=== PATIENT | male | born 1940 | race American Indian/Alaskan Native ===

== ENCOUNTER 2021-11-10 18:24 | Inpatient (IN) | payer MEDICARE ==
--- NOTE | 2021-11-10 19:50 | XRay Report ---
CHEST 1 VIEW INDICATION: weakness. COMPARISON: None. FINDINGS: Support devices: None. Heart: Normal. Lungs/Pleura: There are patchy airspace opacities in the lower lungs bilaterally. Upper lungs are linda ar. No pleural abnormality. IMPRESSION: 1. Patchy bibasilar airspace opacities are concerning for pneumonia. Signer Name: Onel Vital MD Signed: 11/10/2021 7:46 PM Workstation Name: [id number]
--- NOTE | 2021-11-10 20:22 | Emergency Department Report ---
HPI - General Chief Complaint: Medical Clearance Time Seen by Provider: 11/10/21 18:57 - HPI HPI: 81-year-old male presents to the emergency department via EMS from home with complaint of failure to thrive. Over the past 4 to 5 days he has not been eatin g or drinking and has had some unintended weight loss. The patient has a history of CVA x2 with the most recent stroke occurring about 2 weeks ago, on 25 October, while at [place]. This left him with weakness, instability, and appears to be some level of vascular dementia as he now has confusion. He was discharged home on the and has a home health care nurse for a few hours a day, and at home PT/OT. However, despite this home health care and assistance he has mostly remained in bed to the point where he is developing some ulcerations. His "housekeeping director" says that he has been having some dark urine and there is concerned that he is dehydrated. Patient is currently confused, AAO x1, and therefore information has been obtained by his son Carlos and the housekeeping director. ED Past Medical Hx - Past Medical History Previous Medical History?: Yes Hx Dementia: Yes - Social History Smoking Status: Unknown if ever smoked ED Review of Systems ROS: Stated complaint: FAILURE TO THRIVE Other details as noted in HPI Comment: Unobtainable due to pts medical conditions Physical Exam - Physical Exam Vital Signs: Vital Signs 11/10/21 11/10/21 18:57 19:06 Pulse Rate 60 Respiratory 18 Rate Blood Pressure 150/60 [Right] O2 Sat by Pulse 97 97 Oximetry Physical Exam: GENERAL: The patient is well-developed well-nourished. HENT: Normocephalic. Atraumatic. Patient has moist mucous membranes. EYES: Extraocular motions are intact. NECK: Supple. Trachea is midline. CHEST/LUNGS: Bilateral rhonchi heard. No tachypnea or accessory muscle use. HEART/CARDIOVASCULAR: Regular. There is no tachycardia. There is no murmur. ABDOMEN: Abdomen is soft, nontender. Patient has normal bowel sounds. There is no abdominal distention. SKIN: Skin is warm and dry. NEURO: The patient is awake but confused. AAO x1 to person, but not place or time. He is cooperative. Withdraws to painful stimuli. MUSCULOSKELETAL: There is no tenderness or deformity. ED Course Vital Signs 11/10/21 11/10/21 18:57 19:06 Pulse Rate 60 Respiratory 18 Rate Blood Pressure 150/60 [Right] O2 Sat by Pulse 97 97 Oximetry ED Medical Decision Making - Lab Data Result diagrams: 11/10/21 20:02 11/10/21 20:02 Lab Results 11/10/21 11/10/21 11/10/21 Range/Units 20:02 20:02 20:02 WBC 8.4 (4.5-11.0) K/mm3 RBC 4.00 (3.65-5.03) M/mm3 Hgb 11.4 L (11.8-15.2) gm/dl Hct 36.3 (35.5-45.6) % MCV 91 (84-94) fl MCH 29 (28-32) pg MCHC 32 (32-34) % RDW 15.3 H (13.2-15.2) % Plt Count 266 (140-440) K/mm3 Lymph % (Auto) 34.0 (13.4-35.0) % Hood % (Auto) 9.1 H (0.0-7.3) % Eos % (Auto) 0.7 (0.0-4.3) % Baso % (Auto) 0.9 (0.0-1.8) % Lymph # (Auto) 2.9 (1.2-5.4) K/mm3 Hood # (Auto) 0.8 (0.0-0.8) K/mm3 Eos # (Auto) 0.1 (0.0-0.4) K/mm3 Baso # (Auto) 0.1 (0.0-0.1) K/mm3 Seg Neutrophils % 55.3 (40.0-70.0) % Seg Neutrophils # 4.7 (1.8-7.7) K/mm3 D-Dimer (0-234) ng/mlDDU Sodium 144 (137-145) mmol/L Potassium 3.8 (3.6-5.0) mmol/L Chloride 108.3 H (98-107) mmol/L Carbon Dioxide 25 (22-30) mmol/L Anion Gap 15 mmol/L BUN 18 (9-20) mg/dL Creatinine 1.3 (0.8-1.3) mg/dL Estimated GFR 53 ml/min BUN/Creatinine Ratio 14 % Glucose 85 (75-100) mg/dL Lactic Acid 1.20 (0.7-2.0) mmol/L Calcium 8.9 (8.4-10.2) mg/dL Magnesium (1.7-2.3) mg/dL Total Bilirubin 0.70 (0.1-1.2) mg/dL AST 41 H (5-40) units/L ALT 37 (7-56) units/L Alkaline Phosphatase 87 (35-129) units/L Ammonia (25-60) umol/L Total Creatine Kinase (55-170) units/L Troponin T (0.00-0.029) ng/mL Total Protein 6.9 (6.3-8.2) g/dL Albumin 3.3 L (3.9-5) g/dL Albumin/Globulin Ratio 0.9 % TSH (0.270-4.200) mlU/mL 11/10/21 11/10/21 11/10/21 Range/Units 20:02 20:02 20:02 WBC (4.5-11.0) K/mm3 RBC (3.65-5.03) M/mm3 Hgb (11.8-15.2) gm/dl Hct (35.5-45.6) % MCV (84-94) fl MCH (28-32) pg MCHC (32-34) % RDW (13.2-15.2) % Plt Count (140-440) K/mm3 Lymph % (Auto) (13.4-35.0) % Hood % (Auto) (0.0-7.3) % Eos % (Auto) (0.0-4.3) % Baso % (Auto) (0.0-1.8) % Lymph # (Auto) (1.2-5.4) K/mm3 Hood # (Auto) (0.0-0.8) K/mm3 Eos # (Auto) (0.0-0.4) K/mm3 Baso # (Auto) (0.0-0.1) K/mm3 Seg Neutrophils % (40.0-70.0) % Seg Neutrophils # (1.8-7.7) K/mm3 D-Dimer (0-234) ng/mlDDU Sodium (137-145) mmol/L Potassium (3.6-5.0) mmol/L Chloride (98-107) mmol/L Carbon Dioxide (22-30) mmol/L Anion Gap mmol/L BUN (9-20) mg/dL Creatinine (0.8-1.3) mg/dL Estimated GFR ml/min BUN/Creatinine Ratio % Glucose (75-100) mg/dL Lactic Acid (0.7-2.0) mmol/L Calcium (8.4-10.2) mg/dL Magnesium 2.10 (1.7-2.3) mg/dL Total Bilirubin (0.1-1.2) mg/dL AST (5-40) units/L ALT (7-56) units/L Alkaline Phosphatase (35-129) units/L Ammonia 13.0 L (25-60) umol/L Total Creatine Kinase 64 (55-170) units/L Troponin T 0.016 (0.00-0.029) ng/mL Total Protein (6.3-8.2) g/dL Albumin (3.9-5) g/dL Albumin/Globulin Ratio % TSH 1.930 (0.270-4.200) mlU/mL 11/11/21 Range/Units 00:38 WBC (4.5-11.0) K/mm3 RBC (3.65-5.03) M/mm3 Hgb (11.8-15.2) gm/dl Hct (35.5-45.6) % MCV (84-94) fl MCH (28-32) pg MCHC (32-34) % RDW (13.2-15.2) % Plt Count (140-440) K/mm3 Lymph % (Auto) (13.4-35.0) % Hood % (Auto) (0.0-7.3) % Eos % (Auto) (0.0-4.3) % Baso % (Auto) (0.0-1.8) % Lymph # (Auto) (1.2-5.4) K/mm3 Hood # (Auto) (0.0-0.8) K/mm3 Eos # (Auto) (0.0-0.4) K/mm3 Baso # (Auto) (0.0-0.1) K/mm3 Seg Neutrophils % (40.0-70.0) % Seg Neutrophils # (1.8-7.7) K/mm3 D-Dimer 1015.87 H (0-234) ng/mlDDU Sodium (137-145) mmol/L Potassium (3.6-5.0) mmol/L Chloride (98-107) mmol/L Carbon Dioxide (22-30) mmol/L Anion Gap mmol/L BUN (9-20) mg/dL Creatinine (0.8-1.3) mg/dL Estimated GFR ml/min BUN/Creatinine Ratio % Glucose (75-100) mg/dL Lactic Acid (0.7-2.0) mmol/L Calcium (8.4-10.2) mg/dL Magnesium (1.7-2.3) mg/dL Total Bilirubin (0.1-1.2) mg/dL AST (5-40) units/L ALT (7-56) units/L Alkaline Phosphatase (35-129) units/L Ammonia (25-60) umol/L Total Creatine Kinase (55-170) units/L Troponin T (0.00-0.029) ng/mL Total Protein (6.3-8.2) g/dL Albumin (3.9-5) g/dL Albumin/Globulin Ratio % TSH (0.270-4.200) mlU/mL - Radiology Data Radiology results: report reviewed CHEST 1 VIEW INDICATION: weakness. COMPARISON: None. FINDINGS: Support devices: None. Heart: Normal. Lungs/Pleura: There are patchy airspace opacities in the lower lungs bilaterally. Upper lungs are clear. No pleural abnormality. IMPRESSION: 1. Patchy bibasilar airspace opacities are concerning for pneumonia. - Medical Decision Making This patient presents to the emergency department with concern for failure to thrive as he has not been eating or drinking, has decreased medication, and essentially has been laying in bed staring off for the past few days. It sounds like this initially started upon discharge from [place] after his most recent CVA, but has worsened over the past few days despite some home PT/OT and an occasional visit from home health care. On examination the patient is awake but confused, AAO x1. Chest x-ray shows bibasilar infiltrates concerning for pneumonia. Labs have thus far been mostly unremarkable except for some mild decrease in his albumin and slight elevation in his AST level. With the bibasilar pneumonia the patient will be treated with IV antibiotics but there is also concern for possible Covid. Covid labs have been sent and thus far the D-dimer level has come back elevated. Still waiting for the ferritin, CRP and LDH. We also still waiting for a urine sample. Patient will be admitted to the hospital for further evaluation and treatment and was accepted for admission by the hospitalist, Dr. Figueroa. Critical care attestation.: If time is entered above; I have spent that time in minutes in the direct care of this critically ill patient, excluding procedure time. ED Disposition Clinical Impression: Bilateral pneumonia, Suspected 2019 novel coronavirus infection, Mild renal insufficiency Disposition: ADMITTED INPATIENT Is pt being admited?: Yes Condition: Fair Time of Disposition: 01:35
[2021-11-10 20:37] LABS: Basophils # (Auto) 0.1 K/mm3 (0.0-0.1); Basophils % (Auto) 0.9 % (0.0-1.8); Eosinophils # (Auto) 0.1 K/mm3 (0.0-0.4); Eosinophils % (Auto) 0.7 % (0.0-4.3); Hematocrit 36.3 % (35.5-45.6); Hemoglobin 11.4 gm/dl (11.8-15.2); Lymphocytes # (Auto) 2.9 K/mm3 (1.2-5.4); Mean Corpuscular HGB Conc 32 % (32-34); Mean Corpuscular Volume 91 fl (84-94); Monocytes # (Auto) 0.8 K/mm3 (0.0-0.8); Monocytes % (Auto) 9.1 % (0.0-7.3); Platelet Count 266 K/mm3 (140-440); Red Cell Distribution Width 15.3 % (13.2-15.2)
[2021-11-10 20:49] LABS: Albumin 3.3 g/dL (3.9-5); Calcium 8.9 mg/dL (8.4-10.2)
[2021-11-11] MEDS ORDERED: AZITHROMYCIN/NS 500 MG/250 ML 500 MG/250 ML BAG IV ONE (00:32)
[2021-11-11] MEDS ORDERED: cefTRIAXone/NS 1 GM/50 ML 1 GM/50 ML BAG IV ONE (00:32)
[2021-11-11] MEDS ORDERED: SODIUM CHLORIDE 0.9% 1000 ML 1,000 ML IV ONE (00:33)
[2021-11-11 01:34] LABS: C-Reactive Protein 0.4 mg/dL (0.00-1.30)
[2021-11-11] MEDS ORDERED: ALBUTEROL 2.5 MG/3 ML NEBU IH PRN (02:33)
[2021-11-11] MEDS ORDERED: HYDROmorphone 1 MG/1 ML INJ IV PRN (02:33)
[2021-11-11] MEDS ORDERED: ACETAMINOPHEN 325 MG TAB PO PRN (02:33)
[2021-11-11] MEDS ORDERED: MORPHINE 2 MG/1 ML INJ IV PRN (02:33)
[2021-11-11] MEDS ORDERED: ONDANSETRON 4 MG/2 ML INJ IV PRN (02:33)
--- NOTE | 2021-11-11 02:40 | History and Physical Report ---
History of Present Illness Date of examination: 11/11/21 Date of admission: 11/11/21 Chief complaint: Failure to thrive History of present illness: 81-year-old male with history of dementia and stroke with left-sided weakness was brought to the emergency room because of failure to thrive. Over the past 4 to 5 days he has not been eating or drinking and has had some unintended weight loss. The patient has a history of CVA x2 with the most recent stroke occurring about 2 weeks ago, on 25 October, while at [place]. This left him with weakness, instability, and appears to be some level of vascular dementia as he now has confusion. He was discharged home on the and has a home health care nurse for a few hours a day, and at home PT/OT. However, despite this home health care and assistance he has mostly remained in bed to the point where he is developing some ulcerations. His "small animal caretaker" says that he has been having some dark urine and there is concerned that he is dehydrated. Patient is currently confused, AAO x1, and therefore information has been obtained by his son Carlos and the small animal caretaker. Chest x-ray shows bibasilar infiltrates concerning for pneumonia. Labs have thus far been mostly unremarkable except for some mild decrease in his albumin and slight elevation in his AST level. D-dimer is 1015.87, ferritin 1460.0. LDH 270 With the bibasilar pneumonia the patient will be treated with IV antibiotics but there is also concern for possible Covid. Covid labs have been sent and thus far the D-dimer level has come back elevated. Infectious disease consulted Past History Past Medical History: stroke, other (Dementia. Failure to thrive) Medications and Allergies Allergies Allergy/AdvReac Type Severity Reaction Status Date / Time No Known Allergies Allergy Verified 11/10/21 18:57 Active Meds: Active Medications Sodium Chloride (Nacl 0.9% 1000 Ml) 1,000 mls @ 125 mls/hr IV ONCE ONE Stop: 11/11/21 08:32 Review of Systems All systems: negative Constitutional: weakness, malaise, lethargy, other Neurological: change in mentation Exam - Constitutional Vitals: Temp Pulse Resp BP Pulse Ox 60 18 150/60 97 11/10/21 18:57 11/10/21 18:57 11/10/21 18:57 11/10/21 19:06 General appearance: Present: no acute distress, well-nourished - EENT Eyes: Present: PERRL ENT: hearing intact, clear oral mucosa - Neck Neck: Present: supple, normal ROM - Respiratory Respiratory effort: normal Respiratory: bilateral: diminished - Cardiovascular Heart Sounds: Present: S1 & S2. Absent: rub, click - Extremities Extremities: pulses symmetrical, No edema Peripheral Pulses: within normal limits - Abdominal General gastrointestinal: Present: soft, non-tender, non-distended, normal bowel sounds Male genitourinary: Present: normal - Integumentary Integumentary: Present: clear, warm, dry - Musculoskeletal Musculoskeletal: gait normal, strength equal bilaterally - Psychiatric Psychiatric: appropriate mood/affect, intact judgment & insight - Neurologic Neurologic: CNII-XII intact, moves all extremities HEART Score - HEART Score Troponin: Troponin T 0.016 ng/mL (0.00-0.029) 11/10/21 20:02 Results - Labs CBC & Chem 7: 11/10/21 20:02 11/10/21 20:02 Labs: Laboratory Last Values WBC 8.4 K/mm3 (4.5-11.0) 11/10/21 20:02 RBC 4.00 M/mm3 (3.65-5.03) 11/10/21 20:02 Hgb 11.4 gm/dl (11.8-15.2) L 11/10/21 20:02 Hct 36.3 % (35.5-45.6) 11/10/21 20:02 MCV 91 fl (84-94) 11/10/21 20:02 MCH 29 pg (28-32) 11/10/21 20:02 MCHC 32 % (32-34) 11/10/21 20:02 RDW 15.3 % (13.2-15.2) H 11/10/21 20:02 Plt Count 266 K/mm3 (140-440) 11/10/21 20:02 Lymph % (Auto) 34.0 % (13.4-35.0) 11/10/21 20:02 Major % (Auto) 9.1 % (0.0-7.3) H 11/10/21 20:02 Eos % (Auto) 0.7 % (0.0-4.3) 11/10/21 20:02 Baso % (Auto) 0.9 % (0.0-1.8) 11/10/21 20:02 Lymph # (Auto) 2.9 K/mm3 (1.2-5.4) 11/10/21 20:02 Major # (Auto) 0.8 K/mm3 (0.0-0.8) 11/10/21 20:02 Eos # (Auto) 0.1 K/mm3 (0.0-0.4) 11/10/21 20:02 Baso # (Auto) 0.1 K/mm3 (0.0-0.1) 11/10/21 20:02 Seg Neutrophils % 55.3 % (40.0-70.0) 11/10/21 20:02 Seg Neutrophils # 4.7 K/mm3 (1.8-7.7) 11/10/21 20:02 D-Dimer 1015.87 ng/mlDDU (0-234) H 11/11/21 00:38 Sodium 144 mmol/L (137-145) 11/10/21 20:02 Potassium 3.8 mmol/L (3.6-5.0) 11/10/21 20:02 Chloride 108.3 mmol/L (98-107) H 11/10/21 20:02 Carbon Dioxide 25 mmol/L (22-30) 11/10/21 20:02 Anion Gap 15 mmol/L 11/10/21 20:02 BUN 18 mg/dL (9-20) 11/10/21 20:02 Creatinine 1.3 mg/dL (0.8-1.3) 11/10/21 20:02 Estimated GFR 53 ml/min 11/10/21 20:02 BUN/Creatinine Ratio 14 % 11/10/21 20:02 Glucose 85 mg/dL (75-100) 11/10/21 20:02 Lactic Acid 1.20 mmol/L (0.7-2.0) 11/10/21 20:02 Calcium 8.9 mg/dL (8.4-10.2) 11/10/21 20:02 Magnesium 2.10 mg/dL (1.7-2.3) 11/10/21 20:02 Ferritin 1460.0 ng/mL (30.0-300.0) H 11/11/21 00:38 Total Bilirubin 0.70 mg/dL (0.1-1.2) 11/10/21 20:02 AST 41 units/L (5-40) H 11/10/21 20:02 ALT 37 units/L (7-56) 11/10/21 20:02 Alkaline Phosphatase 87 units/L (35-129) 11/10/21 20:02 Ammonia 13.0 umol/L (25-60) L 11/10/21 20:02 Lactate Dehydrogenase 275 units/L (91-180) H 11/11/21 00:38 Total Creatine Kinase 64 units/L (55-170) 11/10/21 20:02 Troponin T 0.016 ng/mL (0.00-0.029) 11/10/21 20:02 C-Reactive Protein 0.40 mg/dL (0.00-1.30) 11/11/21 00:38 Total Protein 6.9 g/dL (6.3-8.2) 11/10/21 20:02 Albumin 3.3 g/dL (3.9-5) L 11/10/21 20:02 Albumin/Globulin Ratio 0.9 % 11/10/21 20:02 TSH 1.930 mlU/mL (0.270-4.200) 11/10/21 20:02 - Imaging and Cardiology Chest x-ray: report reviewed Assessment and Plan VTE prophylaxis?: Chemical Plan of care discussed with patient/family: Yes - Patient Problems (1) Bilateral pneumonia Current Visit: Yes Status: Acute Plan to address problem: Admit the patient to the medical telemetry. Oxygen via nasal penetrator per minute DuoNeb by nebulizer every 4 hours. Rocephin 2 g IV daily. Dexamethasone 6 mg IV daily. Zithromax 500 mg IV daily. We do the blood culture sputum culture follow Covid inflammatory marker. Consult infectious disease for evaluation (2) Failure to thrive Current Visit: Yes Status: Acute Plan to address problem: D5 half-normal saline at the rate of 100 cc/h. Will consult nutrition evaluation for malnutrition and dietary recommendation (3) CVA (cerebral vascular accident) Current Visit: Yes Status: Acute Plan to address problem: Stable. We will continue the home medication (4) Dementia Current Visit: Yes Status: Acute Plan to address problem: Stable. We will monitor the patient closely. We continue the home medication (5) Mild renal insufficiency Current Visit: Yes Status: Acute Plan to address problem: D5 half-normal saline at the rate of 100 cc/h. Avoid nephrotoxic drug. Renally dose medication. Recheck BMP in the morning (6) Suspected 2019 novel coronavirus infection Current Visit: Yes Status: Acute Plan to address problem: Oxygen via nasal penetrator per minute DuoNeb by nebulizer every 4 hours. Rocephin 2 g IV daily. Dexamethasone 6 mg IV daily. Zithromax 500 mg IV daily. We do the blood culture sputum culture follow Covid inflammatory marker. Consult infectious disease for evaluation (7) DVT (deep venous thrombosis) Current Visit: Yes Status: Acute Plan to address problem: Heparin 5000 units subcu every 8 hours for DVT prophylaxis. Pepcid 20 mg p.o. twice daily for GI prophylaxis. Patient is a full code
[2021-11-11] MEDS: HEPARIN 5,000 UNIT/1 ML VIAL SUB-Q SCH ×2 (06:30→17:47)
[2021-11-11] MEDS: D5W/0.45% NACL 1,000 ML IV SCH (10:00)
[2021-11-11] MEDS ORDERED: FAMOTIDINE 20 MG/2 ML INJ IV SCH ×2 (10:00)
[2021-11-11] MEDS: FAMOTIDINE 10 MG TAB PO SCH (10:08)
[2021-11-11] MEDS: dexAMETHasone 4 MG/ML VIAL IV SCH (10:08)
--- NOTE | 2021-11-11 13:49 | Consultation ---
History of Present Illness - Reason for Consult Consult date: 11/11/21 - History of Present Illness 81-year-old male past medical history dementia, stroke presented to hospital with decreased p.o. intake and weight loss. His most recent CVA was 2 weeks previous. He has residual weakness and has new onset altered mental status. He now has some ulcerations due to being mostly bedbound. Afebrile since admission with a white count 8.4. Covid PCR pending. Blood cultures no growth so far. Currently on ceftriaxone, azithromycin, dexamethasone. Imaging personally reviewed: Chest x-ray: Patchy bibasilar airspace opacities Review of systems: Deferred to reduce to the risk of transmission of COVID-19 Past History Past Medical History: stroke, other (Dementia. Failure to thrive) Past Surgical History: No surgical history Social history: no significant social history Family history: hypertension Medications and Allergies Allergies Allergy/AdvReac Type Severity Reaction Status Date / Time No Known Allergies Allergy Verified 11/10/21 18:57 Active Meds: Active Medications Acetaminophen (Acetaminophen 325 Mg Tab) 650 mg PO Q4H PRN PRN Reason: Pain MILD(1-3)/Fever >100.5/DUNNE Albuterol (Albuterol 2.5 Mg/3 Ml Nebu) 2.5 mg IH Q3HRT PRN PRN Reason: Shortness Of Breath Albuterol/Ipratropium (Ipratropium/Albuterol Sulfate 3 Ml Ampul.Neb) 1 ampul IH Q6HRT [facility] Azithromycin (Azithromycin 250 Mg Tab) 500 mg PO QHS [facility] Stop: 11/14/21 22:01 Dexamethasone (Dexamethasone 4 Mg/Ml Vial) 6 mg IV DAILY [facility] Stop: 11/20/21 10:01 Last Admin: 11/11/21 10:08 Dose: 6 mg Famotidine (Famotidine 10 Mg Tab) 10 mg PO BID [facility] Last Admin: 11/11/21 10:08 Dose: Not Given Heparin Sodium (Porcine) (Heparin 5,000 Unit/1 Ml Vial) 5,000 unit SUB-Q Q8HR [facility] Last Admin: 11/11/21 06:30 Dose: 5,000 unit Hydromorphone HCl (Hydromorphone 1 Mg/1 Ml Inj) 0.5 mg IV Q3H PRN PRN Reason: Pain , Severe (7-10) Dextrose/Sodium Chloride (D5/0.45ns) 1,000 mls @ 100 mls/hr IV DIRECT [facility] Last Admin: 11/11/21 10:00 Dose: 100 mls/hr Ceftriaxone Sodium (Rocephin/Ns 2 Gm/100 Ml) 2 gm in 100 mls @ 200 mls/hr IV Q24H [facility]; Protocol Stop: 11/15/21 00:29 Morphine Sulfate (Morphine 2 Mg/1 Ml Inj) 2 mg IV Q4H PRN PRN Reason: Pain, Moderate (4-6) Ondansetron HCl (Ondansetron 4 Mg/2 Ml Inj) 4 mg IV Q8H PRN PRN Reason: Nausea And Vomiting Sodium Chloride (Sodium Chloride 0.9% 10 Ml Flush Syringe) 10 ml IV BID [facility] Last Admin: 11/11/21 10:04 Dose: 10 ml Sodium Chloride (Sodium Chloride 0.9% 10 Ml Flush Syringe) 10 ml IV PRN PRN PRN Reason: LINE FLUSH Physical Examination - Physical Exam Narrative exam: Physical exam deferred to reduce risk of transmission of COVID-19. Please refer to primary team's note. - Constitutional Vitals: Vital Signs Temp Pulse Resp BP Pulse Ox 98.9 F 53 L 16 121/76 100 11/10/21 21:06 11/11/21 08:06 11/11/21 08:06 11/11/21 08:06 11/11/21 08:06 Temperature -Last 24 Hours Temperature 98.9 F Results - Labs CBC & Chem 7: 11/10/21 20:02 11/10/21 20:02 Labs: Abnormal lab results 11/10/21 11/10/21 11/10/21 Range/Units 20:02 20:02 20:02 Hgb 11.4 L (11.8-15.2) gm/dl RDW 15.3 H (13.2-15.2) % [place] % (Auto) 9.1 H (0.0-7.3) % D-Dimer (0-234) ng/mlDDU Chloride 108.3 H (98-107) mmol/L Ferritin (30.0-300.0) ng/mL AST 41 H (5-40) units/L Ammonia 13.0 L (25-60) umol/L Lactate Dehydrogenase (91-180) units/L Albumin 3.3 L (3.9-5) g/dL 11/11/21 11/11/21 11/11/21 Range/Units 00:38 00:38 00:38 Hgb (11.8-15.2) gm/dl RDW (13.2-15.2) % [place] % (Auto) (0.0-7.3) % D-Dimer 1015.87 H (0-234) ng/mlDDU Chloride (98-107) mmol/L Ferritin 1460.0 H (30.0-300.0) ng/mL AST (5-40) units/L Ammonia (25-60) umol/L Lactate Dehydrogenase 275 H (91-180) units/L Albumin (3.9-5) g/dL Assessment and Plan Cultures: Blood culture no growth so far COVID PCR pending A/P: 81-year-old male past medical history dementia, stroke now with: #COVID PUI: pending PCR. CXR with bibasilar infiltrates. On room air. #Pressure wounds: offloading and wound care. 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 Recs: -Continue empiric antibiotics for now pending procalcitonin. If no procalcitonin result then complete 5 days -Continue empiric dexamethasone for now -Follow up COVID PCR -Offloading and wound care for pressure wounds. Thank you for the consult, we will continue to follow. MD Jod[facility] ([facility]) O: [phone] F: [phone]
[2021-11-11] MEDS ORDERED: AZITHROMYCIN 250 MG TAB PO SCH (22:00)
[2021-11-12] MEDS ORDERED: cefTRIAXone/NS 2 GM/100 ML 2 GM/100 ML BAG IV SCH
[2021-11-12] MEDS ORDERED: AZITHROMYCIN/NS 500 MG/250 ML 500 MG/250 ML BAG IV SCH (01:00)
[2021-11-12] MEDS: HEPARIN 5,000 UNIT/1 ML VIAL SUB-Q SCH ×4 (01:16→21:33)
[2021-11-12] MEDS: IPRATROPIUM/ALBUTEROL SULFATE 3 ML AMPUL.NEB IH SCH ×4 (03:05→07:13)
[2021-11-12] MEDS: FAMOTIDINE 10 MG TAB PO SCH ×3 (03:07→21:33)
[2021-11-12 06:25] LABS: Basophils % (Auto) 0.3 % (0.0-1.8); Hematocrit 34.1 % (35.5-45.6); Hemoglobin 10.9 gm/dl (11.8-15.2); Lymphocytes # (Auto) 2.2 K/mm3 (1.2-5.4); Lymphocytes % (Auto) 17.2 % (13.4-35.0); Mean Corpuscular HGB Conc 32 % (32-34); Mean Corpuscular Volume 89 fl (84-94); Monocytes # (Auto) 0.8 K/mm3 (0.0-0.8); Monocytes % (Auto) 6.2 % (0.0-7.3); Platelet Count 245 K/mm3 (140-440); Red Blood Count 3.81 M/mm3 (3.65-5.03); Red Cell Distribution Width 14.8 % (13.2-15.2)
[2021-11-12 06:38] LABS: BUN/Creatinine Ratio 15; Blood Urea Nitrogen 16 mg/dL (9-20); Hemolysis Index 9
[2021-11-12] MEDS: dexAMETHasone 4 MG/ML VIAL IV SCH (09:00)
--- NOTE | 2021-11-12 10:39 | Progress Note ---
Assessment and Plan Cultures: Blood culture no growth so far COVID PCR positive A/P: 81-year-old male past medical history dementia, stroke now with: #COVID pneumonia: CXR with bibasilar infiltrates. On room air. #Pressure wounds: offloading and wound care. 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 Recs: -Stopped empiric antibiotics given normal procalcitonin -Continue empiric dexamethasone for now -Offloading and wound care for pressure wounds. Thank you for the consult, we will continue to follow. Bishop Vargas MD [facility] ([facility]) O: [phone] F: [phone] Subjective Date of service: 11/12/21 Interval history: Afebrile, white count slightly increased today. Objective - Exam Narrative Exam: Physical exam deferred to reduce risk of transmission of COVID-19. Please refer to primary team's note. - Constitutional Vitals: Vital Signs Temp Pulse Resp BP Pulse Ox 98.1 F 60 14 137/80 96 11/12/21 01:35 11/12/21 01:35 11/12/21 01:35 11/12/21 02:00 11/12/21 07:28 Temperature -Last 24 Hours Temperature 98.1 F - Labs CBC & Chem 7: 11/12/21 05:44 11/12/21 05:44 Labs: Abnormal lab results 11/11/21 11/12/21 11/12/21 Range/Units 09:00 05:44 05:44 WBC 12.5 H (4.5-11.0) K/mm3 Hgb 10.9 L (11.8-15.2) gm/dl Hct 34.1 L (35.5-45.6) % Seg Neutrophils % 76.3 H (40.0-70.0) % Seg Neutrophils # 9.6 H (1.8-7.7) K/mm3 Glucose 127 H (75-100) mg/dL Coronavirus (PCR) Positive A (Negative)
--- NOTE | 2021-11-12 20:33 | Progress Note ---
Assessment and Plan - Patient Problems (1) Coronavirus infection Current Visit: Yes Status: Acute (2) Pneumonia Current Visit: Yes Status: Acute Plan to address problem: IV antibiotic therapy, IV steroid therapy, supplemental oxygen as clinically indicated, pulse oximetry, nebulizer therapy, vitamin C therapy, vitamin D therapy, zinc therapy, prophylactic anticoagulation. (3) Metabolic encephalopathy Current Visit: Yes Status: Acute Plan to address problem: Supportive care, neuro check, continue medical management. (4) Malnutrition Current Visit: Yes Status: Acute Qualifiers: Malnutrition type: protein-calorie malnutrition Plan to address problem: Dietary supplementation, increase protein intake when awake and alert only. (5) DVT prophylaxis Current Visit: Yes Status: Acute Plan to address problem: SCD to bilateral lower extremities while in bed, prophylactic anticoagulation (6) Advance care planning Current Visit: Yes Status: Acute Plan to address problem: Disease education conducted, care plan discussed, diagnoses discussed, prognosis discussed, +30 minutes. History Interval history: 81 YO Male HD #2 with Pneumonia, Coronavirus Infection, Encephalopathy. Patient remains confused. Patient more alert and cooperative today. No reported nursing events. Hospitalist Physical - Constitutional Vitals: Temp Pulse Resp BP Pulse Ox 98.1 F 60 14 137/80 95 11/12/21 01:35 11/12/21 01:35 11/12/21 01:35 11/12/21 11:10 11/12/21 11:10 General appearance: Present: no acute distress, well-nourished - EENT Eyes: Present: PERRL ENT: hearing intact - Neck Neck: Present: supple - Respiratory Respiratory: bilateral: diminished - Cardiovascular Rhythm: regular Heart Sounds: Present: S1 & S2 - Extremities Extremities: no ischemia Peripheral Pulses: within normal limits - Abdominal General gastrointestinal: soft, non-tender, non-distended - Integumentary Integumentary: Present: clear, dry - Psychiatric Psychiatric: cooperative - Neurologic Neurologic: CNII-XII intact HEART Score - HEART Score Troponin: Troponin T 0.016 ng/mL (0.00-0.029) 11/10/21 20:02 Results - Labs CBC & Chem 7: 11/12/21 05:44 11/12/21 05:44 Labs: Laboratory Last Values WBC 12.5 K/mm3 (4.5-11.0) H 11/12/21 05:44 RBC 3.81 M/mm3 (3.65-5.03) 11/12/21 05:44 Hgb 10.9 gm/dl (11.8-15.2) L 11/12/21 05:44 Hct 34.1 % (35.5-45.6) L 11/12/21 05:44 MCV 89 fl (84-94) 11/12/21 05:44 MCH 29 pg (28-32) 11/12/21 05:44 MCHC 32 % (32-34) 11/12/21 05:44 RDW 14.8 % (13.2-15.2) 11/12/21 05:44 Plt Count 245 K/mm3 (140-440) 11/12/21 05:44 Lymph % (Auto) 17.2 % (13.4-35.0) 11/12/21 05:44 [place] % (Auto) 6.2 % (0.0-7.3) 11/12/21 05:44 Eos % (Auto) 0.0 % (0.0-4.3) 11/12/21 05:44 Baso % (Auto) 0.3 % (0.0-1.8) 11/12/21 05:44 Lymph # (Auto) 2.2 K/mm3 (1.2-5.4) 11/12/21 05:44 [place] # (Auto) 0.8 K/mm3 (0.0-0.8) 11/12/21 05:44 Eos # (Auto) 0.0 K/mm3 (0.0-0.4) 11/12/21 05:44 Baso # (Auto) 0.0 K/mm3 (0.0-0.1) 11/12/21 05:44 Seg Neutrophils % 76.3 % (40.0-70.0) H 11/12/21 05:44 Seg Neutrophils # 9.6 K/mm3 (1.8-7.7) H 11/12/21 05:44 D-Dimer 1015.87 ng/mlDDU (0-234) H 11/11/21 00:38 Sodium 142 mmol/L (137-145) 11/12/21 05:44 Potassium 4.5 mmol/L (3.6-5.0) 11/12/21 05:44 Chloride 106.4 mmol/L (98-107) 11/12/21 05:44 Carbon Dioxide 26 mmol/L (22-30) 11/12/21 05:44 Anion Gap 14 mmol/L 11/12/21 05:44 BUN 16 mg/dL (9-20) 11/12/21 05:44 Creatinine 1.1 mg/dL (0.8-1.3) 11/12/21 05:44 Estimated GFR > 60 ml/min 11/12/21 05:44 BUN/Creatinine Ratio 15 % 11/12/21 05:44 Glucose 127 mg/dL (75-100) H 11/12/21 05:44 Lactic Acid 1.20 mmol/L (0.7-2.0) 11/10/21 20:02 Calcium 9.0 mg/dL (8.4-10.2) 11/12/21 05:44 Magnesium 2.10 mg/dL (1.7-2.3) 11/10/21 20:02 Ferritin 1460.0 ng/mL (30.0-300.0) H 11/11/21 00:38 Total Bilirubin 0.70 mg/dL (0.1-1.2) 11/10/21 20:02 AST 41 units/L (5-40) H 11/10/21 20:02 ALT 37 units/L (7-56) 11/10/21 20:02 Alkaline Phosphatase 87 units/L (35-129) 11/10/21 20:02 Ammonia 13.0 umol/L (25-60) L 11/10/21 20:02 Lactate Dehydrogenase 275 units/L (91-180) H 11/11/21 00:38 Total Creatine Kinase 64 units/L (55-170) 11/10/21 20:02 Troponin T 0.016 ng/mL (0.00-0.029) 11/10/21 20:02 C-Reactive Protein 0.40 mg/dL (0.00-1.30) 11/11/21 00:38 Total Protein 6.9 g/dL (6.3-8.2) 11/10/21 20:02 Albumin 3.3 g/dL (3.9-5) L 11/10/21 20:02 Albumin/Globulin Ratio 0.9 % 11/10/21 20:02 Procalcitonin < 0.05 ng/mL (<0.15) 11/11/21 00:38 TSH 1.930 mlU/mL (0.270-4.200) 11/10/21 20:02 Coronavirus (PCR) Positive (Negative) A 11/11/21 09:00 Microbiology: Microbiology 11/10/21 20:02 Peripheral/Venous Blood Culture - Preliminary NO GROWTH AFTER 24 HOURS 11/10/21 20:02 Peripheral/Venous Blood Culture - Preliminary NO GROWTH AFTER 24 HOURS Aguilar/IV: Voiding Method Condom Catheter Active Medications - Current Medications Current Medications: Generic Name Dose Route Start Last Admin Trade Name Freq PRN Reason Stop Dose Admin Acetaminophen 650 mg 11/11/21 02:33 Acetaminophen 325 Mg Tab PO Q4H PRN Pain MILD(1-3)/Fever >100.5/DUNNE Albuterol 2.5 mg 11/11/21 02:33 Albuterol 2.5 Mg/3 Ml Nebu IH Q3HRT PRN Shortness Of Breath Dexamethasone 6 mg 11/13/21 10:00 Dexamethasone 4 Mg Tab PO 11/20/21 11:59 DAILY ERNESTINE Famotidine 10 mg 11/11/21 10:00 11/12/21 08:59 Famotidine 10 Mg Tab PO 10 mg BID ERNESTINE Administration Heparin Sodium (Porcine) 5,000 unit 11/11/21 06:00 11/12/21 14:29 Heparin 5,000 Unit/1 Ml Vial SUB-Q 5,000 unit Q8HR ERNESTINE Administration Hydromorphone HCl 0.5 mg 11/11/21 02:33 Hydromorphone 1 Mg/1 Ml Inj IV Q3H PRN Pain , Severe (7-10) Dextrose/Sodium Chloride 1,000 mls @ 100 mls/hr 11/11/21 03:00 11/11/21 10:00 D5/0.45ns IV 100 mls/hr DIRECT ERNESTINE Administration Morphine Sulfate 2 mg 11/11/21 02:33 Morphine 2 Mg/1 Ml Inj IV Q4H PRN Pain, Moderate (4-6) Ondansetron HCl 4 mg 11/11/21 02:33 Ondansetron 4 Mg/2 Ml Inj IV Q8H PRN Nausea And Vomiting Sodium Chloride 10 ml 11/11/21 10:00 11/12/21 09:02 Sodium Chloride 0.9% 10 Ml Flush Syringe IV Not Given BID ERNESTINE Sodium Chloride 10 ml 11/11/21 02:33 Sodium Chloride 0.9% 10 Ml Flush Syringe IV PRN PRN LINE FLUSH Nutrition/Malnutrition Assess - Dietary Evaluation Nutrition/Malnutrition Findings: Nutrition Notes Start: 11/11/21 12:12 Freq: Status: Active Protocol: Document 11/12/21 16:24 SHELDON (Rec: 11/12/21 16:33 SHELDON [id number]) Nutrition Notes 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 Current Diet Cardiac Diet (since B 11/11), D Suppl (since D 11/11). Height 5 ft 8 in Weight 54 kg [place] Body Weight (kg) 70.00 BMI 18.1 Weight change and time frame 0.431 Kg body weight loss in 1 day reported. Weight Status Underweight Subjective/Other Information RD consult for skin risk assessment. Pt's PO intake has been Poor ( 25%), according to ADL notes. Pt presents incipient sacral decubitus lesion, according to Physical Assessment History notes. Pt has been prescribed with Dietary Supplements covering special requirements to support wound healing processes. Percent of energy/protein needs met: Prescribed Cardiac Diet provides for energy/protein needs (2,230 Kcal/85 g) during LOS; additionally, Dietary Supplements will compensate for possible poor or insufficient PO intake of meals with 1,050 Kcal and 60 g of protein. #1 Nutrition Diagnosis Inadequate protein-energy intake Diagnosis Progress(for reassessment Continues documentation) Is patient on ventilator? No Is Patient Ambulatory and/or Out of Bed No REE-([place]-St. Jeor-confined to bed) 1163.560 Calculation Used for Recommendations [place]-St Jeor Additional Notes Protein: 1.2-2 g/Kg; 65-108 g/ day. Fluids: 1 ml/Kcal, or as per MD. Nutrition Intervention Change Diet Order: Continue Cardiac Diet. Add Supplement/Snack (indicate name/kcal 8 fl oz Ensure Enlive; TID. /protein ) Provides kCal: 1,050 Provides Protein (gm) 60 Goal #1 Compensate, through dietary supplementation, for possible poor or insufficient PO intake of meals during LOS. Goal #2 Maintain body weight within +/ -3% of admission body weight during LOS. Goal #3 Support, through dietary supplementation, wound healing processes during LOS. Follow-Up By: 11/19/21 Additional Comments Continue monitoring food tolerance, %PO intake of meals , and BM.
[2021-11-12] MEDS: D5W/0.45% NACL 1,000 ML IV SCH (21:32)
[2021-11-12] MEDS: levETIRAcetam 500 MG TAB PO SCH (21:33)
[2021-11-12] MEDS: methylPREDNISolone Sod Succinate 40 MG/1 ML INJ IV SCH (21:33)
[2021-11-12] MEDS: ZINC SULFATE 220 MG CAP PO SCH (21:34)
[2021-11-12] MEDS: ASCORBIC ACID 500 MG TAB PO SCH (21:34)
[2021-11-12] MEDS ORDERED: NON-FORMULARY EACH (Atorvastatin [Lipitor] 80 MG Tablet) PO SCH (22:00)
[2021-11-13] MEDS: methylPREDNISolone Sod Succinate 40 MG/1 ML INJ IV SCH ×2 (06:07→13:00)
[2021-11-13] MEDS: HEPARIN 5,000 UNIT/1 ML VIAL SUB-Q SCH ×3 (06:07→22:51)
[2021-11-13] MEDS: D5W/0.45% NACL 1,000 ML IV SCH ×2 (06:22→17:04)
[2021-11-13] MEDS: FAMOTIDINE 10 MG TAB PO SCH (09:31)
[2021-11-13] MEDS: levETIRAcetam 500 MG TAB PO SCH (09:31)
[2021-11-13] MEDS: CITALOPRAM 10 MG TAB PO SCH (09:31)
[2021-11-13] MEDS: CHOLECALCIFEROL (VIT D3) 1000 UNIT (25 mcg) TAB PO SCH (09:31)
[2021-11-13] MEDS: ZINC SULFATE 220 MG CAP PO SCH (09:31)
[2021-11-13] MEDS: METOPROLOL SUCCINATE XL 25 MG TAB PO SCH (09:31)
[2021-11-13] MEDS: ASCORBIC ACID 500 MG TAB PO SCH (09:31)
[2021-11-13] MEDS ORDERED: DEXAMETHASONE 4 MG TAB PO SCH (10:00)
--- NOTE | 2021-11-13 10:18 | Electrocardiograph Report ---
[facility] Test Date: 2021-11-12 Test Time: 08:21:49 Pat Name: KARLY JANE Department: Room: A3 1 Gender: M [employer]: DOV : 1940 Requested By: WALDO GIPSON Order Number: [id number] Reading MD: Elvia Min Measurements Intervals [place] Rate: 63 P: 51 DE: 151 QRS: -59 QRSD: 135 T: 2 QT: 453 QTc: 462 Interpretive Statements Sinus rhythm LEFT AXIS DEVIATION Right bundle branch No previous ECG available for comparison Electronically Signed On 11-13-2021 10:17:54 EST by Elvia Min
--- NOTE | 2021-11-13 13:47 | Progress Note ---
Assessment and Plan Cultures: Blood culture no growth so far COVID PCR positive A/P: 81-year-old male past medical history dementia, stroke now with: #COVID pneumonia: CXR with bibasilar infiltrates. On room air. #Pressure wounds: offloading and wound care. 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 Recs: -Stopped empiric antibiotics given normal procalcitonin -Continue empiric dexamethasone for now -Offloading and wound care for pressure wounds. Thank you for the consult, we will continue to follow. Okay to discharge from infectious disease perspective Bishop Vargas MD [facility] ([facility]) O: [phone] F: [phone] Subjective Date of service: 11/13/21 Interval history: Afebrile, white count 12.5. Currently on room air. Objective - Exam Narrative Exam: Physical exam deferred to reduce risk of transmission of COVID-19. Please refer to primary team's note. - Constitutional Vitals: Vital Signs Temp Pulse Resp BP Pulse Ox 98.1 F 64 18 124/72 97 11/13/21 06:39 11/13/21 05:07 11/13/21 05:07 11/13/21 05:07 11/13/21 11:13 Temperature -Last 24 Hours Temperature 98.1 F Temperature 95.3 F Temperature 98.1 F - Labs CBC & Chem 7: 11/12/21 05:44 11/12/21 05:44
--- NOTE | 2021-11-13 20:57 | Progress Note ---
Assessment and Plan - Patient Problems (1) Coronavirus infection Current Visit: Yes Status: Acute Plan to address problem: Continue medical management, Vitamin c, vitamin D, zinc, IV antibiotic therapy, IV steroid therapy, ID consulted. (2) Pneumonia Current Visit: Yes Status: Acute Plan to address problem: IV antibiotic therapy, IV steroid therapy, supplemental oxygen as clinically indicated, pulse oximetry, nebulizer therapy, vitamin C therapy, vitamin D therapy, zinc therapy, prophylactic anticoagulation. (3) Metabolic encephalopathy Current Visit: Yes Status: Acute Plan to address problem: Supportive care, neuro check, continue medical management. (4) Malnutrition Current Visit: Yes Status: Acute Qualifiers: Malnutrition type: protein-calorie malnutrition Plan to address problem: Dietary supplementation, increase protein intake when awake and alert only. (5) DVT prophylaxis Current Visit: Yes Status: Acute Plan to address problem: SCD to bilateral lower extremities while in bed, prophylactic anticoagulation (6) Advance care planning Current Visit: Yes Status: Acute Plan to address problem: Disease education conducted, care plan discussed, diagnoses discussed, prognosis discussed, +30 minutes. History Interval history: 81 YO Male HD #3 with Pneumonia, Coronavirus Infection, Encephalopathy. Patient remains confused but more cooperative today. Patient more alert. No reported nursing events. Pt pending SNF placement. Hospitalist Physical - Constitutional Vitals: Temp Pulse Resp BP Pulse Ox 97.8 F 65 18 134/81 90 11/13/21 16:16 11/13/21 16:16 11/13/21 16:16 11/13/21 16:16 11/13/21 16:16 General appearance: Present: no acute distress, well-nourished - EENT Eyes: Present: PERRL ENT: hearing intact - Neck Neck: Present: supple - Respiratory Respiratory effort: normal Respiratory: bilateral: diminished, rhonchi - Cardiovascular Rhythm: regular Heart Sounds: Present: S1 & S2 - Extremities Extremities: pulses intact Peripheral Pulses: within normal limits - Abdominal General gastrointestinal: soft, non-tender, non-distended - Integumentary Integumentary: Present: clear, dry - Psychiatric Psychiatric: cooperative - Neurologic Neurologic: CNII-XII intact HEART Score - HEART Score Troponin: Troponin T 0.016 ng/mL (0.00-0.029) 11/10/21 20:02 Results - Labs CBC & Chem 7: 11/12/21 05:44 11/12/21 05:44 Labs: Laboratory Last Values WBC 12.5 K/mm3 (4.5-11.0) H 11/12/21 05:44 RBC 3.81 M/mm3 (3.65-5.03) 11/12/21 05:44 Hgb 10.9 gm/dl (11.8-15.2) L 11/12/21 05:44 Hct 34.1 % (35.5-45.6) L 11/12/21 05:44 MCV 89 fl (84-94) 11/12/21 05:44 MCH 29 pg (28-32) 11/12/21 05:44 MCHC 32 % (32-34) 11/12/21 05:44 RDW 14.8 % (13.2-15.2) 11/12/21 05:44 Plt Count 245 K/mm3 (140-440) 11/12/21 05:44 Lymph % (Auto) 17.2 % (13.4-35.0) 11/12/21 05:44 [place] % (Auto) 6.2 % (0.0-7.3) 11/12/21 05:44 Eos % (Auto) 0.0 % (0.0-4.3) 11/12/21 05:44 Baso % (Auto) 0.3 % (0.0-1.8) 11/12/21 05:44 Lymph # (Auto) 2.2 K/mm3 (1.2-5.4) 11/12/21 05:44 [place] # (Auto) 0.8 K/mm3 (0.0-0.8) 11/12/21 05:44 Eos # (Auto) 0.0 K/mm3 (0.0-0.4) 11/12/21 05:44 Baso # (Auto) 0.0 K/mm3 (0.0-0.1) 11/12/21 05:44 Seg Neutrophils % 76.3 % (40.0-70.0) H 11/12/21 05:44 Seg Neutrophils # 9.6 K/mm3 (1.8-7.7) H 11/12/21 05:44 D-Dimer 1015.87 ng/mlDDU (0-234) H 11/11/21 00:38 Sodium 142 mmol/L (137-145) 11/12/21 05:44 Potassium 4.5 mmol/L (3.6-5.0) 11/12/21 05:44 Chloride 106.4 mmol/L (98-107) 11/12/21 05:44 Carbon Dioxide 26 mmol/L (22-30) 11/12/21 05:44 Anion Gap 14 mmol/L 11/12/21 05:44 BUN 16 mg/dL (9-20) 11/12/21 05:44 Creatinine 1.1 mg/dL (0.8-1.3) 11/12/21 05:44 Estimated GFR > 60 ml/min 11/12/21 05:44 BUN/Creatinine Ratio 15 % 11/12/21 05:44 Glucose 127 mg/dL (75-100) H 11/12/21 05:44 Lactic Acid 1.20 mmol/L (0.7-2.0) 11/10/21 20:02 Calcium 9.0 mg/dL (8.4-10.2) 11/12/21 05:44 Magnesium 2.10 mg/dL (1.7-2.3) 11/10/21 20:02 Ferritin 1460.0 ng/mL (30.0-300.0) H 11/11/21 00:38 Total Bilirubin 0.70 mg/dL (0.1-1.2) 11/10/21 20:02 AST 41 units/L (5-40) H 11/10/21 20:02 ALT 37 units/L (7-56) 11/10/21 20:02 Alkaline Phosphatase 87 units/L (35-129) 11/10/21 20:02 Ammonia 13.0 umol/L (25-60) L 11/10/21 20:02 Lactate Dehydrogenase 275 units/L (91-180) H 11/11/21 00:38 Total Creatine Kinase 64 units/L (55-170) 11/10/21 20:02 Troponin T 0.016 ng/mL (0.00-0.029) 11/10/21 20:02 C-Reactive Protein 0.40 mg/dL (0.00-1.30) 11/11/21 00:38 Total Protein 6.9 g/dL (6.3-8.2) 11/10/21 20:02 Albumin 3.3 g/dL (3.9-5) L 11/10/21 20:02 Albumin/Globulin Ratio 0.9 % 11/10/21 20:02 Procalcitonin < 0.05 ng/mL (<0.15) 11/11/21 00:38 TSH 1.930 mlU/mL (0.270-4.200) 11/10/21 20:02 Coronavirus (PCR) Positive (Negative) A 11/11/21 09:00 Microbiology: Microbiology 11/10/21 20:02 Peripheral/Venous Blood Culture - Preliminary NO GROWTH AFTER 48 HOURS 11/10/21 20:02 Peripheral/Venous Blood Culture - Preliminary NO GROWTH AFTER 48 HOURS Aguilar/IV: Voiding Method 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 Active Medications - Current Medications Current Medications: Generic Name Dose Route Start Last Admin Trade Name Freq PRN Reason Stop Dose Admin Acetaminophen 650 mg 11/11/21 02:33 Acetaminophen 325 Mg Tab PO Q4H PRN Pain MILD(1-3)/Fever >100.5/DUNNE Albuterol 2.5 mg 11/11/21 02:33 Albuterol 2.5 Mg/3 Ml Nebu IH Q3HRT PRN Shortness Of Breath Ascorbic Acid 500 mg 11/12/21 22:00 11/13/21 09:31 Ascorbic Acid 500 Mg Tab PO 500 mg BID ERNESTINE Administration Atorvastatin Calcium 80 mg 11/12/21 22:00 11/12/21 21:34 Atorvastatin 40 Mg Tab PO 80 mg QHS ERNESTINE Administration Cholecalciferol 1,000 unit 11/13/21 10:00 11/13/21 09:31 Cholecalciferol (Vit D3) 1000 Unit (25 Mcg) Tab PO 1,000 unit QDAY ERNESTINE Administration Citalopram Hydrobromide 10 mg 11/13/21 10:00 11/13/21 09:31 Citalopram 10 Mg Tab PO 10 mg QDAY ERNESTINE Administration Famotidine 10 mg 11/11/21 10:00 11/13/21 09:31 Famotidine 10 Mg Tab PO 10 mg BID ERNESTINE Administration Heparin Sodium (Porcine) 5,000 unit 11/11/21 06:00 11/13/21 13:01 Heparin 5,000 Unit/1 Ml Vial SUB-Q 5,000 unit Q8HR ERNESTINE Administration Hydromorphone HCl 0.5 mg 11/11/21 02:33 Hydromorphone 1 Mg/1 Ml Inj IV Q3H PRN Pain , Severe (7-10) Dextrose/Sodium Chloride 1,000 mls @ 100 mls/hr 11/11/21 03:00 11/13/21 17:04 D5/0.45ns IV 100 mls/hr DIRECT ERNESTINE Administration Levetiracetam 500 mg 11/12/21 22:00 11/13/21 09:31 Levetiracetam 500 Mg Tab PO 500 mg BID ERNESTINE Administration Methylprednisolone Sodium Succinate 40 mg 11/12/21 22:00 11/13/21 13:00 Methylprednisolone Sod Succinate 40 Mg/1 Ml Inj IV 40 mg Q8HR ERNESTINE Administration Metoprolol Succinate 25 mg 11/13/21 10:00 11/13/21 09:31 Metoprolol Succinate Xl 25 Mg Tab PO 25 mg QDAY ERNESTINE Administration Morphine Sulfate 2 mg 11/11/21 02:33 Morphine 2 Mg/1 Ml Inj IV Q4H PRN Pain, Moderate (4-6) Ondansetron HCl 4 mg 11/11/21 02:33 Ondansetron 4 Mg/2 Ml Inj IV Q8H PRN Nausea And Vomiting Sodium Chloride 10 ml 11/11/21 10:00 11/13/21 09:31 Sodium Chloride 0.9% 10 Ml Flush Syringe IV 10 ml BID ERNESTINE Administration Sodium Chloride 10 ml 11/11/21 02:33 Sodium Chloride 0.9% 10 Ml Flush Syringe IV PRN PRN LINE FLUSH Zinc Sulfate 220 mg 11/12/21 22:00 11/13/21 09:31 Zinc Sulfate 220 Mg Cap PO 220 mg BID ERNESTINE Administration Nutrition/Malnutrition Assess - Dietary Evaluation Nutrition/Malnutrition Findings: Nutrition Notes Start: 11/11/21 12:12 Freq: Status: Active Protocol: Document 11/12/21 16:24 SHELDON (Rec: 11/12/21 16:33 SHELDON [id number]) 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 Current Diet Cardiac Diet (since B 11/11), D Suppl (since D 11/11). Height 5 ft 8 in Weight 54 kg [place] Body Weight (kg) 70.00 BMI 18.1 Weight change and time frame 0.431 Kg body weight loss in 1 day reported. Weight Status Underweight Subjective/Other Information RD consult for skin risk assessment. Pt's PO intake has been Poor ( 25%), according to ADL notes. Pt presents incipient sacral decubitus lesion, according to Physical Assessment History notes. Pt has been prescribed with Dietary Supplements covering special requirements to support wound healing processes. Percent of energy/protein needs met: Prescribed Cardiac Diet provides for energy/protein needs (2,230 Kcal/85 g) during LOS; additionally, Dietary Supplements will compensate for possible poor or insufficient PO intake of meals with 1,050 Kcal and 60 g of protein. #1 Nutrition Diagnosis Inadequate protein-energy intake Diagnosis Progress(for reassessment Continues documentation) Is patient on ventilator? No Is Patient Ambulatory and/or Out of Bed No REE-([place]-St. Jeor-confined to bed) 2239.310 Calculation Used for Recommendations [facility] Additional Notes Protein: 1.2-2 g/Kg; 65-108 g/ day. Fluids: 1 ml/Kcal, or as per MD. Nutrition Intervention Change Diet Order: Continue Cardiac Diet. Add Supplement/Snack (indicate name/kcal 8 fl oz Ensure Enlive; TID. /protein ) Provides kCal: 1,050 Provides Protein (gm) 60 Goal #1 Compensate, through dietary supplementation, for possible poor or insufficient PO intake of meals during LOS. Goal #2 Maintain body weight within +/ -3% of admission body weight during LOS. Goal #3 Support, through dietary supplementation, wound healing processes during LOS. Follow-Up By: 11/19/21 Additional Comments Continue monitoring food tolerance, %PO intake of meals , and BM.
[2021-11-14] MEDS: levETIRAcetam 500 MG TAB PO SCH ×3 (01:52→23:18)
[2021-11-14] MEDS: ASCORBIC ACID 500 MG TAB PO SCH ×3 (01:53→23:18)
[2021-11-14] MEDS: FAMOTIDINE 10 MG TAB PO SCH ×3 (01:53→23:18)
[2021-11-14] MEDS: methylPREDNISolone Sod Succinate 40 MG/1 ML INJ IV SCH ×4 (01:53→23:19)
[2021-11-14] MEDS: ZINC SULFATE 220 MG CAP PO SCH ×3 (01:54→23:18)
[2021-11-14] MEDS: D5W/0.45% NACL 1,000 ML IV SCH ×3 (05:11→23:31)
[2021-11-14] MEDS: HEPARIN 5,000 UNIT/1 ML VIAL SUB-Q SCH ×3 (05:12→23:19)
[2021-11-14] MEDS: METOPROLOL SUCCINATE XL 25 MG TAB PO SCH (09:33)
[2021-11-14] MEDS: CHOLECALCIFEROL (VIT D3) 1000 UNIT (25 mcg) TAB PO SCH (09:34)
[2021-11-14] MEDS: CITALOPRAM 10 MG TAB PO SCH (09:34)
--- NOTE | 2021-11-14 10:37 | Progress Note ---
Assessment and Plan Cultures: Blood culture no growth so far COVID PCR positive A/P: 81-year-old male past medical history dementia, stroke now with: #COVID pneumonia: CXR with bibasilar infiltrates. On room air. #Pressure wounds: offloading and wound care. 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 Recs: -Stopped empiric antibiotics given normal procalcitonin -Continue empiric dexamethasone for now, complete 10 days -Offloading and wound care for pressure wounds. Thank you for the consult, we will continue to follow. Okay to discharge from infectious disease perspective Bishop Vargas MD [facility] ([facility]) O: [phone] F: [phone] Subjective Date of service: 11/14/21 Interval history: Afebrile, remains on room air. No acute issues. Objective - Exam Narrative Exam: Physical exam deferred to reduce risk of transmission of COVID-19. Please refer to primary team's note. - Constitutional Vitals: Vital Signs Temp Pulse Resp BP Pulse Ox 97.8 F 64 20 141/80 97 11/14/21 05:12 11/14/21 05:12 11/14/21 05:12 11/14/21 05:12 11/14/21 07:03 Temperature -Last 24 Hours Temperature 97.8 F Temperature 98.3 F Temperature 97.8 F - Labs CBC & Chem 7: 11/12/21 05:44 11/12/21 05:44
--- NOTE | 2021-11-14 20:52 | Progress Note ---
Assessment and Plan - Patient Problems (1) Coronavirus infection Current Visit: Yes Status: Acute Plan to address problem: Continue medical management, Vitamin c, vitamin D, zinc, IV antibiotic therapy, IV steroid therapy, ID consulted. Patient resting comfortably on room air. (2) Pneumonia Current Visit: Yes Status: Acute Plan to address problem: IV antibiotic therapy, IV steroid therapy, supplemental oxygen as clinically indicated, pulse oximetry, nebulizer therapy, vitamin C therapy, vitamin D therapy, zinc therapy, prophylactic anticoagulation. (3) Metabolic encephalopathy Current Visit: Yes Status: Acute Plan to address problem: Supportive care, neuro check, continue medical management. (4) Malnutrition Current Visit: Yes Status: Acute Qualifiers: Malnutrition type: protein-calorie malnutrition Plan to address problem: Dietary supplementation, increase protein intake when awake and alert only. (5) DVT prophylaxis Current Visit: Yes Status: Acute Plan to address problem: SCD to bilateral lower extremities while in bed, prophylactic anticoagulation (6) Advance care planning Current Visit: Yes Status: Acute Plan to address problem: Disease education conducted, care plan discussed, diagnoses discussed, prognosis discussed, +30 minutes. History Interval history: 81 YO Male HD #3 with Pneumonia, Coronavirus Infection, vascular dementia, cerebral atherosclerosis. Patient remains confused but more cooperative today. Patient more alert. No reported nursing events. Pt pending SNF placement. Patient care plan discussed with nursing staff. Will discontinue restraints. Sitter is indicated. Hospitalist Physical - Constitutional Vitals: Temp Pulse Resp BP Pulse Ox 97.5 F L 95 H 18 137/74 99 11/14/21 12:06 11/14/21 12:06 11/14/21 12:06 11/14/21 12:06 11/14/21 12:06 General appearance: Present: no acute distress, well-nourished - EENT Eyes: Present: PERRL ENT: hearing intact - Neck Neck: Present: supple - Respiratory Respiratory: bilateral: CTA - Cardiovascular Rhythm: regular Heart Sounds: Present: S1 & S2 - Extremities Extremities: no ischemia Peripheral Pulses: within normal limits - Abdominal General gastrointestinal: soft, non-tender, non-distended - Integumentary Integumentary: Present: clear, dry - Psychiatric Psychiatric: cooperative - Neurologic Neurologic: CNII-XII intact HEART Score - HEART Score Troponin: Troponin T 0.016 ng/mL (0.00-0.029) 11/10/21 20:02 Results - Labs CBC & Chem 7: 11/12/21 05:44 11/12/21 05:44 Labs: Laboratory Last Values WBC 12.5 K/mm3 (4.5-11.0) H 11/12/21 05:44 RBC 3.81 M/mm3 (3.65-5.03) 11/12/21 05:44 Hgb 10.9 gm/dl (11.8-15.2) L 11/12/21 05:44 Hct 34.1 % (35.5-45.6) L 11/12/21 05:44 MCV 89 fl (84-94) 11/12/21 05:44 MCH 29 pg (28-32) 11/12/21 05:44 MCHC 32 % (32-34) 11/12/21 05:44 RDW 14.8 % (13.2-15.2) 11/12/21 05:44 Plt Count 245 K/mm3 (140-440) 11/12/21 05:44 Lymph % (Auto) 17.2 % (13.4-35.0) 11/12/21 05:44 [place] % (Auto) 6.2 % (0.0-7.3) 11/12/21 05:44 Eos % (Auto) 0.0 % (0.0-4.3) 11/12/21 05:44 Baso % (Auto) 0.3 % (0.0-1.8) 11/12/21 05:44 Lymph # (Auto) 2.2 K/mm3 (1.2-5.4) 11/12/21 05:44 [place] # (Auto) 0.8 K/mm3 (0.0-0.8) 11/12/21 05:44 Eos # (Auto) 0.0 K/mm3 (0.0-0.4) 11/12/21 05:44 Baso # (Auto) 0.0 K/mm3 (0.0-0.1) 11/12/21 05:44 Seg Neutrophils % 76.3 % (40.0-70.0) H 11/12/21 05:44 Seg Neutrophils # 9.6 K/mm3 (1.8-7.7) H 11/12/21 05:44 D-Dimer 1015.87 ng/mlDDU (0-234) H 11/11/21 00:38 Sodium 142 mmol/L (137-145) 11/12/21 05:44 Potassium 4.5 mmol/L (3.6-5.0) 11/12/21 05:44 Chloride 106.4 mmol/L (98-107) 11/12/21 05:44 Carbon Dioxide 26 mmol/L (22-30) 11/12/21 05:44 Anion Gap 14 mmol/L 11/12/21 05:44 BUN 16 mg/dL (9-20) 11/12/21 05:44 Creatinine 1.1 mg/dL (0.8-1.3) 11/12/21 05:44 Estimated GFR > 60 ml/min 11/12/21 05:44 BUN/Creatinine Ratio 15 % 11/12/21 05:44 Glucose 127 mg/dL (75-100) H 11/12/21 05:44 Lactic Acid 1.20 mmol/L (0.7-2.0) 11/10/21 20:02 Calcium 9.0 mg/dL (8.4-10.2) 11/12/21 05:44 Magnesium 2.10 mg/dL (1.7-2.3) 11/10/21 20:02 Ferritin 1460.0 ng/mL (30.0-300.0) H 11/11/21 00:38 Total Bilirubin 0.70 mg/dL (0.1-1.2) 11/10/21 20:02 AST 41 units/L (5-40) H 11/10/21 20:02 ALT 37 units/L (7-56) 11/10/21 20:02 Alkaline Phosphatase 87 units/L (35-129) 11/10/21 20:02 Ammonia 13.0 umol/L (25-60) L 11/10/21 20:02 Lactate Dehydrogenase 275 units/L (91-180) H 11/11/21 00:38 Total Creatine Kinase 64 units/L (55-170) 11/10/21 20:02 Troponin T 0.016 ng/mL (0.00-0.029) 11/10/21 20:02 C-Reactive Protein 0.40 mg/dL (0.00-1.30) 11/11/21 00:38 Total Protein 6.9 g/dL (6.3-8.2) 11/10/21 20:02 Albumin 3.3 g/dL (3.9-5) L 11/10/21 20:02 Albumin/Globulin Ratio 0.9 % 11/10/21 20:02 Procalcitonin < 0.05 ng/mL (<0.15) 11/11/21 00:38 TSH 1.930 mlU/mL (0.270-4.200) 11/10/21 20:02 Coronavirus (PCR) Positive (Negative) A 11/11/21 09:00 Microbiology: Microbiology 11/10/21 20:02 Peripheral/Venous Blood Culture - Preliminary NO GROWTH AFTER 72 HOURS 11/10/21 20:02 Peripheral/Venous Blood Culture - Preliminary NO GROWTH AFTER 72 HOURS Aguilar/IV: Voiding Method Incontinent Active Medications - Current Medications Current Medications: Generic Name Dose Route Start Last Admin Trade Name Freq PRN Reason Stop Dose Admin Acetaminophen 650 mg 11/11/21 02:33 Acetaminophen 325 Mg Tab PO Q4H PRN Pain MILD(1-3)/Fever >100.5/DUNNE Albuterol 2.5 mg 11/11/21 02:33 Albuterol 2.5 Mg/3 Ml Nebu IH Q3HRT PRN Shortness Of Breath Ascorbic Acid 500 mg 11/12/21 22:00 11/14/21 09:34 Ascorbic Acid 500 Mg Tab PO 500 mg BID ERNESTINE Administration Atorvastatin Calcium 80 mg 11/12/21 22:00 11/14/21 01:52 Atorvastatin 40 Mg Tab PO 80 mg QHS ERNESTINE Administration Cholecalciferol 1,000 unit 11/13/21 10:00 11/14/21 09:34 Cholecalciferol (Vit D3) 1000 Unit (25 Mcg) Tab PO 1,000 unit QDAY ERNESTINE Administration Citalopram Hydrobromide 10 mg 11/13/21 10:00 11/14/21 09:34 Citalopram 10 Mg Tab PO 10 mg QDAY ERNESTINE Administration Famotidine 10 mg 11/11/21 10:00 11/14/21 09:33 Famotidine 10 Mg Tab PO 10 mg BID ERNESTINE Administration Heparin Sodium (Porcine) 5,000 unit 11/11/21 06:00 11/14/21 13:49 Heparin 5,000 Unit/1 Ml Vial SUB-Q 5,000 unit Q8HR ERNESTINE Administration Hydromorphone HCl 0.5 mg 11/11/21 02:33 Hydromorphone 1 Mg/1 Ml Inj IV Q3H PRN Pain , Severe (7-10) Dextrose/Sodium Chloride 1,000 mls @ 100 mls/hr 11/11/21 03:00 11/14/21 16:10 D5/0.45ns IV 100 mls/hr DIRECT ERNESTINE Administration Levetiracetam 500 mg 11/12/21 22:00 11/14/21 09:33 Levetiracetam 500 Mg Tab PO 500 mg BID ERNESTINE Administration Methylprednisolone Sodium Succinate 40 mg 11/12/21 22:00 11/14/21 13:49 Methylprednisolone Sod Succinate 40 Mg/1 Ml Inj IV 40 mg Q8HR ERNESTINE Administration Metoprolol Succinate 25 mg 11/13/21 10:00 11/14/21 09:33 Metoprolol Succinate Xl 25 Mg Tab PO 25 mg QDAY ERNESTINE Administration Morphine Sulfate 2 mg 11/11/21 02:33 Morphine 2 Mg/1 Ml Inj IV Q4H PRN Pain, Moderate (4-6) Ondansetron HCl 4 mg 11/11/21 02:33 Ondansetron 4 Mg/2 Ml Inj IV Q8H PRN Nausea And Vomiting Sodium Chloride 10 ml 11/11/21 10:00 11/14/21 09:34 Sodium Chloride 0.9% 10 Ml Flush Syringe IV 10 ml BID ERNESTINE Administration Sodium Chloride 10 ml 11/11/21 02:33 Sodium Chloride 0.9% 10 Ml Flush Syringe IV PRN PRN LINE FLUSH Zinc Sulfate 220 mg 11/12/21 22:00 11/14/21 09:34 Zinc Sulfate 220 Mg Cap PO 220 mg BID ERNESTINE Administration Nutrition/Malnutrition Assess - Dietary Evaluation Nutrition/Malnutrition Findings: Nutrition Notes Start: 11/11/21 12:12 Freq: Status: Active Protocol: Document 11/12/21 16:24 SHELDON (Rec: 11/12/21 16:33 SHELDON [id number]) Nutrition Notes Need for Assessment generated from: cfo Initial or Follow up Brief Note Current Diagnosis Acute Kidney Injury,Decubitus( Pressure Ulcer) Other Pertinent Diagnosis COVID-19 pui, Bilateral Pneumonia, Dementia, CVA X2, Failure to Thrive. Current Diet Cardiac Diet (since B 11/11), D Suppl (since D 11/11). Height 5 ft 8 in Weight 54 kg [place] Body Weight (kg) 70.00 BMI 18.1 Weight change and time frame 0.431 Kg body weight loss in 1 day reported. Weight Status Underweight Subjective/Other Information RD consult for skin risk assessment. Pt's PO intake has been Poor ( 25%), according to ADL notes. Pt presents incipient sacral decubitus lesion, according to Physical Assessment History notes. Pt has been prescribed with Dietary Supplements covering special requirements to support wound healing processes. Percent of energy/protein needs met: Prescribed Cardiac Diet provides for energy/protein needs (2,230 Kcal/85 g) during LOS; additionally, Dietary Supplements will compensate for possible poor or insufficient PO intake of meals with 1,050 Kcal and 60 g of protein. #1 Nutrition Diagnosis Inadequate protein-energy intake Diagnosis Progress(for reassessment Continues documentation) Is patient on ventilator? No Is Patient Ambulatory and/or Out of Bed No REE-([facility]-confined to bed) 2356.082 Calculation Used for Recommendations [facility] Additional Notes Protein: 1.2-2 g/Kg; 65-108 g/ day. Fluids: 1 ml/Kcal, or as per MD. Nutrition Intervention Change Diet Order: Continue Cardiac Diet. Add Supplement/Snack (indicate name/kcal 8 fl oz Ensure Enlive; TID. /protein ) Provides kCal: 1,050 Provides Protein (gm) 60 Goal #1 Compensate, through dietary supplementation, for possible poor or insufficient PO intake of meals during LOS. Goal #2 Maintain body weight within +/ -3% of admission body weight during LOS. Goal #3 Support, through dietary supplementation, wound healing processes during LOS. Follow-Up By: 11/19/21 Additional Comments Continue monitoring food tolerance, %PO intake of meals , and BM.
[2021-11-15] MEDS: methylPREDNISolone Sod Succinate 40 MG/1 ML INJ IV SCH ×3 (05:48→22:08)
[2021-11-15] MEDS: HEPARIN 5,000 UNIT/1 ML VIAL SUB-Q SCH ×3 (05:48→22:10)
[2021-11-15] MEDS: METOPROLOL SUCCINATE XL 25 MG TAB PO SCH (09:31)
[2021-11-15] MEDS: FAMOTIDINE 10 MG TAB PO SCH ×2 (09:32→22:08)
[2021-11-15] MEDS: CITALOPRAM 10 MG TAB PO SCH (09:32)
[2021-11-15] MEDS: ZINC SULFATE 220 MG CAP PO SCH ×2 (09:32→22:10)
[2021-11-15] MEDS: CHOLECALCIFEROL (VIT D3) 1000 UNIT (25 mcg) TAB PO SCH (09:32)
[2021-11-15] MEDS: levETIRAcetam 500 MG TAB PO SCH ×2 (09:32→22:08)
[2021-11-15] MEDS: ASCORBIC ACID 500 MG TAB PO SCH ×2 (09:32→22:08)
--- NOTE | 2021-11-15 10:04 | Progress Note ---
Assessment and Plan Cultures: Blood culture no growth so far COVID PCR positive A/P: 81-year-old male past medical history dementia, stroke now with: #COVID pneumonia: CXR with bibasilar infiltrates. On room air. #Pressure wounds: offloading and wound care. 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 Recs: -Stopped empiric antibiotics given normal procalcitonin -Continue empiric dexamethasone for now, complete 10 days -Offloading and wound care for pressure wounds. -Awaiting SNF placement. Thank you for the consult, we will sign off. Please call with questions. Okay to discharge from infectious disease perspective Bishop Vargas MD [facility], [place], [facility] ([facility]) O: [phone] F: [phone] Subjective Date of service: 11/15/21 Interval history: Afebrile, remains on room air. Objective - Exam Narrative Exam: Physical exam deferred to reduce risk of transmission of COVID-19. Please refer to primary team's note. - Constitutional Vitals: Vital Signs Temp Pulse Resp BP Pulse Ox 98.2 F 53 L 18 134/76 96 11/15/21 04:51 11/15/21 04:51 11/15/21 04:51 11/15/21 04:51 11/15/21 07:15 Temperature -Last 24 Hours Temperature 98.2 F Temperature 98.3 F Temperature 97.7 F Temperature 97.5 F - Labs CBC & Chem 7: 11/12/21 05:44 11/12/21 05:44
[2021-11-15] MEDS: D5W/0.45% NACL 1,000 ML IV SCH ×2 (13:11→22:25)
--- NOTE | 2021-11-15 20:53 | Progress Note ---
Assessment and Plan - Patient Problems (1) Coronavirus infection Current Visit: Yes Status: Acute Plan to address problem: Continue medical management, Vitamin c, vitamin D, zinc, IV antibiotic therapy, IV steroid therapy, ID consulted. Patient resting comfortably on room air. (2) Pneumonia Current Visit: Yes Status: Acute Plan to address problem: IV antibiotic therapy, IV steroid therapy, supplemental oxygen as clinically indicated, pulse oximetry, nebulizer therapy, vitamin C therapy, vitamin D therapy, zinc therapy, prophylactic anticoagulation. (3) Metabolic encephalopathy Current Visit: Yes Status: Acute Plan to address problem: Supportive care, neuro check, continue medical management. (4) Malnutrition Current Visit: Yes Status: Acute Qualifiers: Malnutrition type: protein-calorie malnutrition Plan to address problem: Dietary supplementation, increase protein intake when awake and alert only. (5) DVT prophylaxis Current Visit: Yes Status: Acute Plan to address problem: SCD to bilateral lower extremities while in bed, prophylactic anticoagulation (6) Advance care planning Current Visit: Yes Status: Acute Plan to address problem: Disease education conducted, care plan discussed, diagnoses discussed, prognosis discussed, +30 minutes. History Interval history: 81 YO Male HD #3 with Pneumonia, Coronavirus Infection, vascular dementia, cerebral atherosclerosis. Patient remains confused but remains cooperative today. Patient more alert. No reported nursing events. Pt medically optimized and pending SNF placement. Hospitalist Physical - Constitutional Vitals: Temp Pulse Resp BP Pulse Ox 97.5 F L 76 18 166/98 98 11/15/21 13:04 11/15/21 13:04 11/15/21 13:04 11/15/21 13:04 11/15/21 13:04 General appearance: Present: no acute distress, well-nourished - EENT Eyes: Present: PERRL ENT: hearing intact, hearing decreased - Neck Neck: Present: supple - Respiratory Respiratory effort: normal Respiratory: bilateral: diminished - Cardiovascular Rhythm: regular Heart Sounds: Present: S1 & S2 - Extremities Extremities: no ischemia Peripheral Pulses: within normal limits - Abdominal General gastrointestinal: soft, non-tender, non-distended - Integumentary Integumentary: Present: clear, dry - Psychiatric Psychiatric: cooperative - Neurologic Neurologic: CNII-XII intact HEART Score - HEART Score Troponin: Troponin T 0.016 ng/mL (0.00-0.029) 11/10/21 20:02 Results - Labs CBC & Chem 7: 11/12/21 05:44 11/12/21 05:44 Labs: Laboratory Last Values WBC 12.5 K/mm3 (4.5-11.0) H 11/12/21 05:44 RBC 3.81 M/mm3 (3.65-5.03) 11/12/21 05:44 Hgb 10.9 gm/dl (11.8-15.2) L 11/12/21 05:44 Hct 34.1 % (35.5-45.6) L 11/12/21 05:44 MCV 89 fl (84-94) 11/12/21 05:44 MCH 29 pg (28-32) 11/12/21 05:44 MCHC 32 % (32-34) 11/12/21 05:44 RDW 14.8 % (13.2-15.2) 11/12/21 05:44 Plt Count 245 K/mm3 (140-440) 11/12/21 05:44 Lymph % (Auto) 17.2 % (13.4-35.0) 11/12/21 05:44 [place] % (Auto) 6.2 % (0.0-7.3) 11/12/21 05:44 Eos % (Auto) 0.0 % (0.0-4.3) 11/12/21 05:44 Baso % (Auto) 0.3 % (0.0-1.8) 11/12/21 05:44 Lymph # (Auto) 2.2 K/mm3 (1.2-5.4) 11/12/21 05:44 [place] # (Auto) 0.8 K/mm3 (0.0-0.8) 11/12/21 05:44 Eos # (Auto) 0.0 K/mm3 (0.0-0.4) 11/12/21 05:44 Baso # (Auto) 0.0 K/mm3 (0.0-0.1) 11/12/21 05:44 Seg Neutrophils % 76.3 % (40.0-70.0) H 11/12/21 05:44 Seg Neutrophils # 9.6 K/mm3 (1.8-7.7) H 11/12/21 05:44 D-Dimer 1015.87 ng/mlDDU (0-234) H 11/11/21 00:38 Sodium 142 mmol/L (137-145) 11/12/21 05:44 Potassium 4.5 mmol/L (3.6-5.0) 11/12/21 05:44 Chloride 106.4 mmol/L (98-107) 11/12/21 05:44 Carbon Dioxide 26 mmol/L (22-30) 11/12/21 05:44 Anion Gap 14 mmol/L 11/12/21 05:44 BUN 16 mg/dL (9-20) 11/12/21 05:44 Creatinine 1.1 mg/dL (0.8-1.3) 11/12/21 05:44 Estimated GFR > 60 ml/min 11/12/21 05:44 BUN/Creatinine Ratio 15 % 11/12/21 05:44 Glucose 127 mg/dL (75-100) H 11/12/21 05:44 Lactic Acid 1.20 mmol/L (0.7-2.0) 11/10/21 20:02 Calcium 9.0 mg/dL (8.4-10.2) 11/12/21 05:44 Magnesium 2.10 mg/dL (1.7-2.3) 11/10/21 20:02 Ferritin 1460.0 ng/mL (30.0-300.0) H 11/11/21 00:38 Total Bilirubin 0.70 mg/dL (0.1-1.2) 11/10/21 20:02 AST 41 units/L (5-40) H 11/10/21 20:02 ALT 37 units/L (7-56) 11/10/21 20:02 Alkaline Phosphatase 87 units/L (35-129) 11/10/21 20:02 Ammonia 13.0 umol/L (25-60) L 11/10/21 20:02 Lactate Dehydrogenase 275 units/L (91-180) H 11/11/21 00:38 Total Creatine Kinase 64 units/L (55-170) 11/10/21 20:02 Troponin T 0.016 ng/mL (0.00-0.029) 11/10/21 20:02 C-Reactive Protein 0.40 mg/dL (0.00-1.30) 11/11/21 00:38 Total Protein 6.9 g/dL (6.3-8.2) 11/10/21 20:02 Albumin 3.3 g/dL (3.9-5) L 11/10/21 20:02 Albumin/Globulin Ratio 0.9 % 11/10/21 20:02 Procalcitonin < 0.05 ng/mL (<0.15) 11/11/21 00:38 TSH 1.930 mlU/mL (0.270-4.200) 11/10/21 20:02 Coronavirus (PCR) Positive (Negative) A 11/11/21 09:00 Microbiology: Microbiology 11/10/21 20:02 Peripheral/Venous Blood Culture - Preliminary NO GROWTH AFTER 4 DAYS 11/10/21 20:02 Peripheral/Venous Blood Culture - Preliminary NO GROWTH AFTER 4 DAYS Aguilar/IV: Voiding Method Incontinent Active Medications - Current Medications Current Medications: Generic Name Dose Route Start Last Admin Trade Name Freq PRN Reason Stop Dose Admin Acetaminophen 650 mg 11/11/21 02:33 Acetaminophen 325 Mg Tab PO Q4H PRN Pain MILD(1-3)/Fever >100.5/DUNNE Albuterol 2.5 mg 11/11/21 02:33 Albuterol 2.5 Mg/3 Ml Nebu IH Q3HRT PRN Shortness Of Breath Ascorbic Acid 500 mg 11/12/21 22:00 11/15/21 09:32 Ascorbic Acid 500 Mg Tab PO 500 mg BID ERNESTINE Administration Atorvastatin Calcium 80 mg 11/12/21 22:00 11/14/21 23:18 Atorvastatin 40 Mg Tab PO 80 mg QHS ERNESTINE Administration Cholecalciferol 1,000 unit 11/13/21 10:00 11/15/21 09:32 Cholecalciferol (Vit D3) 1000 Unit (25 Mcg) Tab PO 1,000 unit QDAY ERNESTINE Administration Citalopram Hydrobromide 10 mg 11/13/21 10:00 11/15/21 09:32 Citalopram 10 Mg Tab PO 10 mg QDAY ERNESTINE Administration Famotidine 10 mg 11/11/21 10:00 11/15/21 09:32 Famotidine 10 Mg Tab PO 10 mg BID ERNESTINE Administration Heparin Sodium (Porcine) 5,000 unit 11/11/21 06:00 11/15/21 13:11 Heparin 5,000 Unit/1 Ml Vial SUB-Q 5,000 unit Q8HR ERNESTINE Administration Hydromorphone HCl 0.5 mg 11/11/21 02:33 Hydromorphone 1 Mg/1 Ml Inj IV Q3H PRN Pain , Severe (7-10) Dextrose/Sodium Chloride 1,000 mls @ 100 mls/hr 11/11/21 03:00 11/15/21 13:11 D5/0.45ns IV 100 mls/hr DIRECT ERNESTINE Administration Levetiracetam 500 mg 11/12/21 22:00 11/15/21 09:32 Levetiracetam 500 Mg Tab PO 500 mg BID ERNESTINE Administration Methylprednisolone Sodium Succinate 40 mg 11/12/21 22:00 11/15/21 13:11 Methylprednisolone Sod Succinate 40 Mg/1 Ml Inj IV 40 mg Q8HR ERNESTINE Administration Metoprolol Succinate 25 mg 11/13/21 10:00 11/15/21 09:31 Metoprolol Succinate Xl 25 Mg Tab PO 25 mg QDAY ERNESTINE Administration Morphine Sulfate 2 mg 11/11/21 02:33 Morphine 2 Mg/1 Ml Inj IV Q4H PRN Pain, Moderate (4-6) Ondansetron HCl 4 mg 11/11/21 02:33 Ondansetron 4 Mg/2 Ml Inj IV Q8H PRN Nausea And Vomiting Sodium Chloride 10 ml 11/11/21 10:00 11/15/21 09:33 Sodium Chloride 0.9% 10 Ml Flush Syringe IV 10 ml BID ERNESTINE Administration Sodium Chloride 10 ml 11/11/21 02:33 Sodium Chloride 0.9% 10 Ml Flush Syringe IV PRN PRN LINE FLUSH Zinc Sulfate 220 mg 11/12/21 22:00 11/15/21 09:32 Zinc Sulfate 220 Mg Cap PO 220 mg BID ERNESTINE Administration Nutrition/Malnutrition Assess - Dietary Evaluation Nutrition/Malnutrition Findings: Nutrition Notes Start: 11/11/21 12:12 Freq: Status: Active Protocol: Document 11/12/21 16:24 SHELDON (Rec: 11/12/21 16:33 SHELDON [id number]) Nutrition Notes 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 Current Diet Cardiac Diet (since B 11/11), D Suppl (since D 11/11). Height 5 ft 8 in Weight 54 kg [place] Body Weight (kg) 70.00 BMI 18.1 Weight change and time frame 0.431 Kg body weight loss in 1 day reported. Weight Status Underweight Subjective/Other Information RD consult for skin risk assessment. Pt's PO intake has been Poor ( 25%), according to ADL notes. Pt presents incipient sacral decubitus lesion, according to Physical Assessment History notes. Pt has been prescribed with Dietary Supplements covering special requirements to support wound healing processes. Percent of energy/protein needs met: Prescribed Cardiac Diet provides for energy/protein needs (2,230 Kcal/85 g) during LOS; additionally, Dietary Supplements will compensate for possible poor or insufficient PO intake of meals with 1,050 Kcal and 60 g of protein. #1 Nutrition Diagnosis Inadequate protein-energy intake Diagnosis Progress(for reassessment Continues documentation) Is patient on ventilator? No Is Patient Ambulatory and/or Out of Bed No REE-([facility]-confined to bed) 8054.501 Calculation Used for Recommendations [facility] Additional Notes Protein: 1.2-2 g/Kg; 65-108 g/ day. Fluids: 1 ml/Kcal, or as per MD. Nutrition Intervention Change Diet Order: Continue Cardiac Diet. Add Supplement/Snack (indicate name/kcal 8 fl oz Ensure Enlive; TID. /protein ) Provides kCal: 1,050 Provides Protein (gm) 60 Goal #1 Compensate, through dietary supplementation, for possible poor or insufficient PO intake of meals during LOS. Goal #2 Maintain body weight within +/ -3% of admission body weight during LOS. Goal #3 Support, through dietary supplementation, wound healing processes during LOS. Follow-Up By: 11/19/21 Additional Comments Continue monitoring food tolerance, %PO intake of meals , and BM.
[2021-11-16] MEDS: HEPARIN 5,000 UNIT/1 ML VIAL SUB-Q SCH ×3 (05:42→22:50)
[2021-11-16] MEDS: methylPREDNISolone Sod Succinate 40 MG/1 ML INJ IV SCH ×3 (05:45→22:52)
[2021-11-16] MEDS: D5W/0.45% NACL 1,000 ML IV SCH ×2 (10:33→23:03)
[2021-11-16] MEDS: CHOLECALCIFEROL (VIT D3) 1000 UNIT (25 mcg) TAB PO SCH (10:34)
[2021-11-16] MEDS: ASCORBIC ACID 500 MG TAB PO SCH ×2 (10:34→22:50)
[2021-11-16] MEDS: ZINC SULFATE 220 MG CAP PO SCH ×2 (10:34→22:50)
[2021-11-16] MEDS: FAMOTIDINE 10 MG TAB PO SCH ×2 (10:35→22:49)
[2021-11-16] MEDS: levETIRAcetam 500 MG TAB PO SCH ×2 (10:35→22:50)
[2021-11-16] MEDS: CITALOPRAM 10 MG TAB PO SCH (10:35)
[2021-11-16] MEDS: METOPROLOL SUCCINATE XL 25 MG TAB PO SCH (10:55)
--- NOTE | 2021-11-16 20:35 | Progress Note ---
Assessment and Plan - Patient Problems (1) Coronavirus infection Current Visit: Yes Status: Acute Plan to address problem: Continue medical management, Vitamin c, vitamin D, zinc, IV antibiotic therapy, IV steroid therapy, ID consulted. Patient resting comfortably on room air. (2) Pneumonia Current Visit: Yes Status: Acute Plan to address problem: IV antibiotic therapy, IV steroid therapy, supplemental oxygen as clinically indicated, pulse oximetry, nebulizer therapy, vitamin C therapy, vitamin D therapy, zinc therapy, prophylactic anticoagulation. (3) Metabolic encephalopathy Current Visit: Yes Status: Acute Plan to address problem: Supportive care, neuro check, continue medical management. (4) Malnutrition Current Visit: Yes Status: Acute Qualifiers: Malnutrition type: protein-calorie malnutrition Plan to address problem: Dietary supplementation, increase protein intake when awake and alert only. (5) DVT prophylaxis Current Visit: Yes Status: Acute Plan to address problem: SCD to bilateral lower extremities while in bed, prophylactic anticoagulation (6) Advance care planning Current Visit: Yes Status: Acute Plan to address problem: Disease education conducted, care plan discussed, diagnoses discussed, prognosis discussed, +30 minutes. History Interval history: 81 YO Male HD #5 with Pneumonia, Coronavirus Infection, vascular dementia, cerebral atherosclerosis. Patient remains confused but cooperative today. Patient more alert. No reported nursing events. Pt medically optimized and pending SNF placement. Hospitalist Physical - Constitutional Vitals: Temp Pulse Resp BP Pulse Ox 98.0 F 59 L 16 144/83 100 11/16/21 16:53 11/16/21 16:53 11/16/21 16:53 11/16/21 16:53 11/16/21 16:53 General appearance: Present: no acute distress, well-nourished - EENT Eyes: Present: PERRL ENT: hearing decreased - Neck Neck: Present: supple - Respiratory Respiratory effort: normal Respiratory: bilateral: diminished - Cardiovascular Rhythm: regular Heart Sounds: Present: S1 & S2 - Extremities Extremities: no ischemia Peripheral Pulses: within normal limits - Abdominal General gastrointestinal: soft, non-tender, non-distended - Integumentary Integumentary: Present: clear, dry - Psychiatric Psychiatric: cooperative - Neurologic Neurologic: CNII-XII intact HEART Score - HEART Score Troponin: Troponin T 0.016 ng/mL (0.00-0.029) 11/10/21 20:02 Results - Labs CBC & Chem 7: 11/12/21 05:44 11/12/21 05:44 Labs: Laboratory Last Values WBC 12.5 K/mm3 (4.5-11.0) H 11/12/21 05:44 RBC 3.81 M/mm3 (3.65-5.03) 11/12/21 05:44 Hgb 10.9 gm/dl (11.8-15.2) L 11/12/21 05:44 Hct 34.1 % (35.5-45.6) L 11/12/21 05:44 MCV 89 fl (84-94) 11/12/21 05:44 MCH 29 pg (28-32) 11/12/21 05:44 MCHC 32 % (32-34) 11/12/21 05:44 RDW 14.8 % (13.2-15.2) 11/12/21 05:44 Plt Count 245 K/mm3 (140-440) 11/12/21 05:44 Lymph % (Auto) 17.2 % (13.4-35.0) 11/12/21 05:44 [place] % (Auto) 6.2 % (0.0-7.3) 11/12/21 05:44 Eos % (Auto) 0.0 % (0.0-4.3) 11/12/21 05:44 Baso % (Auto) 0.3 % (0.0-1.8) 11/12/21 05:44 Lymph # (Auto) 2.2 K/mm3 (1.2-5.4) 11/12/21 05:44 [place] # (Auto) 0.8 K/mm3 (0.0-0.8) 11/12/21 05:44 Eos # (Auto) 0.0 K/mm3 (0.0-0.4) 11/12/21 05:44 Baso # (Auto) 0.0 K/mm3 (0.0-0.1) 11/12/21 05:44 Seg Neutrophils % 76.3 % (40.0-70.0) H 11/12/21 05:44 Seg Neutrophils # 9.6 K/mm3 (1.8-7.7) H 11/12/21 05:44 D-Dimer 1015.87 ng/mlDDU (0-234) H 11/11/21 00:38 Sodium 142 mmol/L (137-145) 11/12/21 05:44 Potassium 4.5 mmol/L (3.6-5.0) 11/12/21 05:44 Chloride 106.4 mmol/L (98-107) 11/12/21 05:44 Carbon Dioxide 26 mmol/L (22-30) 11/12/21 05:44 Anion Gap 14 mmol/L 11/12/21 05:44 BUN 16 mg/dL (9-20) 11/12/21 05:44 Creatinine 1.1 mg/dL (0.8-1.3) 11/12/21 05:44 Estimated GFR > 60 ml/min 11/12/21 05:44 BUN/Creatinine Ratio 15 % 11/12/21 05:44 Glucose 127 mg/dL (75-100) H 11/12/21 05:44 POC Glucose 109 mg/dL (70-105) H 11/16/21 05:13 Lactic Acid 1.20 mmol/L (0.7-2.0) 11/10/21 20:02 Calcium 9.0 mg/dL (8.4-10.2) 11/12/21 05:44 Magnesium 2.10 mg/dL (1.7-2.3) 11/10/21 20:02 Ferritin 1460.0 ng/mL (30.0-300.0) H 11/11/21 00:38 Total Bilirubin 0.70 mg/dL (0.1-1.2) 11/10/21 20:02 AST 41 units/L (5-40) H 11/10/21 20:02 ALT 37 units/L (7-56) 11/10/21 20:02 Alkaline Phosphatase 87 units/L (35-129) 11/10/21 20:02 Ammonia 13.0 umol/L (25-60) L 11/10/21 20:02 Lactate Dehydrogenase 275 units/L (91-180) H 11/11/21 00:38 Total Creatine Kinase 64 units/L (55-170) 11/10/21 20:02 Troponin T 0.016 ng/mL (0.00-0.029) 11/10/21 20:02 C-Reactive Protein 0.40 mg/dL (0.00-1.30) 11/11/21 00:38 Total Protein 6.9 g/dL (6.3-8.2) 11/10/21 20:02 Albumin 3.3 g/dL (3.9-5) L 11/10/21 20:02 Albumin/Globulin Ratio 0.9 % 11/10/21 20:02 Procalcitonin < 0.05 ng/mL (<0.15) 11/11/21 00:38 TSH 1.930 mlU/mL (0.270-4.200) 11/10/21 20:02 Coronavirus (PCR) Positive (Negative) A 11/11/21 09:00 Microbiology: Microbiology 11/10/21 20:02 Peripheral/Venous Blood Culture - Final NO GROWTH AFTER 5 DAYS 11/10/21 20:02 Peripheral/Venous Blood Culture - Final NO GROWTH AFTER 5 DAYS Aguilar/IV: Voiding Method Incontinent Active Medications - Current Medications Current Medications: Generic Name Dose Route Start Last Admin Trade Name Freq PRN Reason Stop Dose Admin Acetaminophen 650 mg 11/11/21 02:33 Acetaminophen 325 Mg Tab PO Q4H PRN Pain MILD(1-3)/Fever >100.5/DUNNE Albuterol 2.5 mg 11/11/21 02:33 Albuterol 2.5 Mg/3 Ml Nebu IH Q3HRT PRN Shortness Of Breath Ascorbic Acid 500 mg 11/12/21 22:00 11/16/21 10:34 Ascorbic Acid 500 Mg Tab PO 500 mg BID ERNESTINE Administration Atorvastatin Calcium 80 mg 11/12/21 22:00 11/15/21 22:08 Atorvastatin 40 Mg Tab PO 80 mg QHS ERNESTINE Administration Cholecalciferol 1,000 unit 11/13/21 10:00 11/16/21 10:34 Cholecalciferol (Vit D3) 1000 Unit (25 Mcg) Tab PO 1,000 unit QDAY ERNESITNE Administration Citalopram Hydrobromide 10 mg 11/13/21 10:00 11/16/21 10:35 Citalopram 10 Mg Tab PO 10 mg QDAY ERNESTINE Administration Famotidine 10 mg 11/11/21 10:00 11/16/21 10:35 Famotidine 10 Mg Tab PO 10 mg BID ERNESTINE Administration Heparin Sodium (Porcine) 5,000 unit 11/11/21 06:00 11/16/21 15:30 Heparin 5,000 Unit/1 Ml Vial SUB-Q 5,000 unit Q8HR ERNESTINE Administration Hydromorphone HCl 0.5 mg 11/11/21 02:33 Hydromorphone 1 Mg/1 Ml Inj IV Q3H PRN Pain , Severe (7-10) Dextrose/Sodium Chloride 1,000 mls @ 100 mls/hr 11/11/21 03:00 11/16/21 10:33 D5/0.45ns IV 100 mls/hr DIRECT ERNESTINE Administration Levetiracetam 500 mg 11/12/21 22:00 11/16/21 10:35 Levetiracetam 500 Mg Tab PO 500 mg BID ERNESTINE Administration Methylprednisolone Sodium Succinate 40 mg 11/12/21 22:00 11/16/21 15:30 Methylprednisolone Sod Succinate 40 Mg/1 Ml Inj IV 40 mg Q8HR ERNESTINE Administration Metoprolol Succinate 25 mg 11/13/21 10:00 11/16/21 10:55 Metoprolol Succinate Xl 25 Mg Tab PO 25 mg QDAY ERNESTINE Administration Morphine Sulfate 2 mg 11/11/21 02:33 Morphine 2 Mg/1 Ml Inj IV Q4H PRN Pain, Moderate (4-6) Ondansetron HCl 4 mg 11/11/21 02:33 Ondansetron 4 Mg/2 Ml Inj IV Q8H PRN Nausea And Vomiting Sodium Chloride 10 ml 11/11/21 10:00 11/16/21 10:36 Sodium Chloride 0.9% 10 Ml Flush Syringe IV 10 ml BID ERNESTINE Administration Sodium Chloride 10 ml 11/11/21 02:33 Sodium Chloride 0.9% 10 Ml Flush Syringe IV PRN PRN LINE FLUSH Zinc Sulfate 220 mg 11/12/21 22:00 11/16/21 10:34 Zinc Sulfate 220 Mg Cap PO 220 mg BID ERNESTINE Administration Nutrition/Malnutrition Assess - Dietary Evaluation Nutrition/Malnutrition Findings: Nutrition Notes Start: 11/11/21 12:12 Freq: Status: Active Protocol: Document 11/12/21 16:24 SHELDON (Rec: 11/12/21 16:33 SHELDON [email or web address]) Nutrition Notes 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 Current Diet Cardiac Diet (since B 11/11), D Suppl (since D 11/11). Height 5 ft 8 in Weight 54 kg [place] Body Weight (kg) 70.00 BMI 18.1 Weight change and time frame 0.431 Kg body weight loss in 1 day reported. Weight Status Underweight Subjective/Other Information RD consult for skin risk assessment. Pt's PO intake has been Poor ( 25%), according to ADL notes. Pt presents incipient sacral decubitus lesion, according to Physical Assessment History notes. Pt has been prescribed with Dietary Supplements covering special requirements to support wound healing processes. Percent of energy/protein needs met: Prescribed Cardiac Diet provides for energy/protein needs (2,230 Kcal/85 g) during LOS; additionally, Dietary Supplements will compensate for possible poor or insufficient PO intake of meals with 1,050 Kcal and 60 g of protein. #1 Nutrition Diagnosis Inadequate protein-energy intake Diagnosis Progress(for reassessment Continues documentation) Is patient on ventilator? No Is Patient Ambulatory and/or Out of Bed No REE-([facility]-confined to bed) [phone] Calculation Used for Recommendations [facility] Additional Notes Protein: 1.2-2 g/Kg; 65-108 g/ day. Fluids: 1 ml/Kcal, or as per MD. Nutrition Intervention Change Diet Order: Continue Cardiac Diet. Add Supplement/Snack (indicate name/kcal 8 fl oz Ensure Enlive; TID. /protein ) Provides kCal: 1,050 Provides Protein (gm) 60 Goal #1 Compensate, through dietary supplementation, for possible poor or insufficient PO intake of meals during LOS. Goal #2 Maintain body weight within +/ -3% of admission body weight during LOS. Goal #3 Support, through dietary supplementation, wound healing processes during LOS. Follow-Up By: 11/19/21 Additional Comments Continue monitoring food tolerance, %PO intake of meals , and BM.
[2021-11-17] MEDS: methylPREDNISolone Sod Succinate 40 MG/1 ML INJ IV SCH ×3 (06:34→21:19)
[2021-11-17] MEDS: HEPARIN 5,000 UNIT/1 ML VIAL SUB-Q SCH ×3 (06:35→21:19)
[2021-11-17] MEDS: CHOLECALCIFEROL (VIT D3) 1000 UNIT (25 mcg) TAB PO SCH (11:44)
[2021-11-17] MEDS: ZINC SULFATE 220 MG CAP PO SCH ×2 (11:44→21:19)
[2021-11-17] MEDS: ASCORBIC ACID 500 MG TAB PO SCH ×2 (11:44→21:29)
[2021-11-17] MEDS: FAMOTIDINE 10 MG TAB PO SCH ×2 (11:44→21:19)
[2021-11-17] MEDS: levETIRAcetam 500 MG TAB PO SCH ×2 (11:45→21:19)
[2021-11-17] MEDS: CITALOPRAM 10 MG TAB PO SCH (11:45)
[2021-11-17] MEDS: D5W/0.45% NACL 1,000 ML IV SCH ×2 (11:46→20:52)
[2021-11-17] MEDS: METOPROLOL SUCCINATE XL 25 MG TAB PO SCH (12:23)
--- NOTE | 2021-11-17 16:22 | Progress Note ---
Assessment and Plan - Patient Problems (1) Coronavirus infection Current Visit: Yes Status: Acute Plan to address problem: Continue medical management, Vitamin c, vitamin D, zinc, IV antibiotic therapy course completed, IV steroid therapy for total of 10 days,. Patient resting comfortably on room air. (2) Pneumonia Current Visit: Yes Status: Acute Plan to address problem: IV antibiotic therapy course completed, supplemental oxygen as clinically indica janell, pulse oximetry, nebulizer therapy, vitamin C therapy, vitamin D therapy, zinc therapy, prophylactic anticoagulation. (3) Metabolic encephalopathy Current Visit: Yes Status: Acute Plan to address problem: Supportive care, neuro check, continue medical management. (4) Malnutrition Current Visit: Yes Status: Acute Qualifiers: Malnutrition type: protein-calorie malnutrition Plan to address problem: Dietary supplementation, increase protein intake when awake and alert only. (5) DVT prophylaxis Current Visit: Yes Status: Acute Plan to address problem: SCD to bilateral lower extremities while in bed, prophylactic anticoagulation (6) Advance care planning Current Visit: Yes Status: Acute Plan to address problem: Disease education conducted, care plan discussed, diagnoses discussed, prognosis discussed, +30 minutes. History Interval history: 81 YO Male HD #6 with Pneumonia, Coronavirus Infection, vascular dementia, cerebral atherosclerosis. Patient remains confused but cooperative today. Patient more alert. No reported nursing events. Pt medically optimized and pending SNF placement. Hospitalist Physical - Constitutional Vitals: Temp Pulse Resp BP Pulse Ox 97.9 F 66 92 H 148/73 93 11/17/21 12:20 11/17/21 12:23 11/17/21 12:20 11/17/21 12:23 11/17/21 05:05 General appearance: Present: no acute distress, well-nourished - EENT Eyes: Present: PERRL - Neck Neck: Present: supple - Respiratory Respiratory effort: normal Respiratory: bilateral: diminished - Cardiovascular Rhythm: regular Heart Sounds: Present: S1 & S2 - Extremities Extremities: no ischemia Peripheral Pulses: within normal limits - Abdominal General gastrointestinal: soft, non-tender, non-distended - Integumentary Integumentary: Present: clear, dry - Psychiatric Psychiatric: cooperative - Neurologic Neurologic: CNII-XII intact HEART Score - HEART Score Troponin: Troponin T 0.016 ng/mL (0.00-0.029) 11/10/21 20:02 Results - Labs CBC & Chem 7: 11/12/21 05:44 11/12/21 05:44 Labs: Laboratory Last Values WBC 12.5 K/mm3 (4.5-11.0) H 11/12/21 05:44 RBC 3.81 M/mm3 (3.65-5.03) 11/12/21 05:44 Hgb 10.9 gm/dl (11.8-15.2) L 11/12/21 05:44 Hct 34.1 % (35.5-45.6) L 11/12/21 05:44 MCV 89 fl (84-94) 11/12/21 05:44 MCH 29 pg (28-32) 11/12/21 05:44 MCHC 32 % (32-34) 11/12/21 05:44 RDW 14.8 % (13.2-15.2) 11/12/21 05:44 Plt Count 245 K/mm3 (140-440) 11/12/21 05:44 Lymph % (Auto) 17.2 % (13.4-35.0) 11/12/21 05:44 [place] % (Auto) 6.2 % (0.0-7.3) 11/12/21 05:44 Eos % (Auto) 0.0 % (0.0-4.3) 11/12/21 05:44 Baso % (Auto) 0.3 % (0.0-1.8) 11/12/21 05:44 Lymph # (Auto) 2.2 K/mm3 (1.2-5.4) 11/12/21 05:44 [place] # (Auto) 0.8 K/mm3 (0.0-0.8) 11/12/21 05:44 Eos # (Auto) 0.0 K/mm3 (0.0-0.4) 11/12/21 05:44 Baso # (Auto) 0.0 K/mm3 (0.0-0.1) 11/12/21 05:44 Seg Neutrophils % 76.3 % (40.0-70.0) H 11/12/21 05:44 Seg Neutrophils # 9.6 K/mm3 (1.8-7.7) H 11/12/21 05:44 D-Dimer 1015.87 ng/mlDDU (0-234) H 11/11/21 00:38 Sodium 142 mmol/L (137-145) 11/12/21 05:44 Potassium 4.5 mmol/L (3.6-5.0) 11/12/21 05:44 Chloride 106.4 mmol/L (98-107) 11/12/21 05:44 Carbon Dioxide 26 mmol/L (22-30) 11/12/21 05:44 Anion Gap 14 mmol/L 11/12/21 05:44 BUN 16 mg/dL (9-20) 11/12/21 05:44 Creatinine 1.1 mg/dL (0.8-1.3) 11/12/21 05:44 Estimated GFR > 60 ml/min 11/12/21 05:44 BUN/Creatinine Ratio 15 % 11/12/21 05:44 Glucose 127 mg/dL (75-100) H 11/12/21 05:44 POC Glucose 109 mg/dL (70-105) H 11/16/21 05:13 Lactic Acid 1.20 mmol/L (0.7-2.0) 11/10/21 20:02 Calcium 9.0 mg/dL (8.4-10.2) 11/12/21 05:44 Magnesium 2.10 mg/dL (1.7-2.3) 11/10/21 20:02 Ferritin 1460.0 ng/mL (30.0-300.0) H 11/11/21 00:38 Total Bilirubin 0.70 mg/dL (0.1-1.2) 11/10/21 20:02 AST 41 units/L (5-40) H 11/10/21 20:02 ALT 37 units/L (7-56) 11/10/21 20:02 Alkaline Phosphatase 87 units/L (35-129) 11/10/21 20:02 Ammonia 13.0 umol/L (25-60) L 11/10/21 20:02 Lactate Dehydrogenase 275 units/L (91-180) H 11/11/21 00:38 Total Creatine Kinase 64 units/L (55-170) 11/10/21 20:02 Troponin T 0.016 ng/mL (0.00-0.029) 11/10/21 20:02 C-Reactive Protein 0.40 mg/dL (0.00-1.30) 11/11/21 00:38 Total Protein 6.9 g/dL (6.3-8.2) 11/10/21 20:02 Albumin 3.3 g/dL (3.9-5) L 11/10/21 20:02 Albumin/Globulin Ratio 0.9 % 11/10/21 20:02 Procalcitonin < 0.05 ng/mL (<0.15) 11/11/21 00:38 TSH 1.930 mlU/mL (0.270-4.200) 11/10/21 20:02 Coronavirus (PCR) Positive (Negative) A 11/11/21 09:00 Aguilar/IV: Voiding Method Condom Catheter Active Medications - Current Medications Current Medications: Generic Name Dose Route Start Last Admin Trade Name Freq PRN Reason Stop Dose Admin Acetaminophen 650 mg 11/11/21 02:33 Acetaminophen 325 Mg Tab PO Q4H PRN Pain MILD(1-3)/Fever >100.5/DUNNE Albuterol 2.5 mg 11/11/21 02:33 Albuterol 2.5 Mg/3 Ml Nebu IH Q3HRT PRN Shortness Of Breath Ascorbic Acid 500 mg 11/12/21 22:00 11/17/21 11:44 Ascorbic Acid 500 Mg Tab PO 500 mg BID ERNESTINE Administration Atorvastatin Calcium 80 mg 11/12/21 22:00 11/16/21 22:50 Atorvastatin 40 Mg Tab PO 80 mg QHS ERNESTINE Administration Cholecalciferol 1,000 unit 11/13/21 10:00 11/17/21 11:44 Cholecalciferol (Vit D3) 1000 Unit (25 Mcg) Tab PO 1,000 unit QDAY ERNESTINE Administration Citalopram Hydrobromide 10 mg 11/13/21 10:00 11/17/21 11:45 Citalopram 10 Mg Tab PO 10 mg QDAY ERNESTINE Administration Famotidine 10 mg 11/11/21 10:00 11/17/21 11:44 Famotidine 10 Mg Tab PO 10 mg BID ERNESTINE Administration Heparin Sodium (Porcine) 5,000 unit 11/11/21 06:00 11/17/21 14:24 Heparin 5,000 Unit/1 Ml Vial SUB-Q 5,000 unit Q8HR ERNESTINE Administration Hydromorphone HCl 0.5 mg 11/11/21 02:33 Hydromorphone 1 Mg/1 Ml Inj IV Q3H PRN Pain , Severe (7-10) Dextrose/Sodium Chloride 1,000 mls @ 100 mls/hr 11/11/21 03:00 11/17/21 11:46 D5/0.45ns IV 100 mls/hr DIRECT ERNESTINE Administration Levetiracetam 500 mg 11/12/21 22:00 11/17/21 11:45 Levetiracetam 500 Mg Tab PO 500 mg BID ERNESTINE Administration Methylprednisolone Sodium Succinate 40 mg 11/12/21 22:00 11/17/21 14:24 Methylprednisolone Sod Succinate 40 Mg/1 Ml Inj IV 40 mg Q8HR ERNESTINE Administration Metoprolol Succinate 25 mg 11/13/21 10:00 11/17/21 12:23 Metoprolol Succinate Xl 25 Mg Tab PO 25 mg QDAY ERNESTINE Administration Morphine Sulfate 2 mg 11/11/21 02:33 Morphine 2 Mg/1 Ml Inj IV Q4H PRN Pain, Moderate (4-6) Ondansetron HCl 4 mg 11/11/21 02:33 Ondansetron 4 Mg/2 Ml Inj IV Q8H PRN Nausea And Vomiting Sodium Chloride 10 ml 11/11/21 10:00 11/17/21 11:45 Sodium Chloride 0.9% 10 Ml Flush Syringe IV 10 ml BID ERNESTINE Administration Sodium Chloride 10 ml 11/11/21 02:33 Sodium Chloride 0.9% 10 Ml Flush Syringe IV PRN PRN LINE FLUSH Zinc Sulfate 220 mg 11/12/21 22:00 11/17/21 11:44 Zinc Sulfate 220 Mg Cap PO 220 mg BID ERNESTINE Administration Nutrition/Malnutrition Assess - Dietary Evaluation Nutrition/Malnutrition Findings: Nutrition Notes Start: 11/11/21 12:12 Freq: Status: Active Protocol: Document 11/12/21 16:24 SHELDON (Rec: 11/12/21 16:33 SHELDON [id number]) Nutrition Notes Need for 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 Current Diet Cardiac Diet (since B 11/11), D Suppl (since D 11/11). Height 5 ft 8 in Weight 54 kg [place] Body Weight (kg) 70.00 BMI 18.1 Weight change and time frame 0.431 Kg body weight loss in 1 day reported. Weight Status Underweight Subjective/Other Information RD consult for skin risk assessment. Pt's PO intake has been Poor ( 25%), according to ADL notes. Pt presents incipient sacral decubitus lesion, according to Physical Assessment History notes. Pt has been prescribed with Dietary Supplements covering special requirements to support wound healing processes. Percent of energy/protein needs met: Prescribed Cardiac Diet provides for energy/protein needs (2,230 Kcal/85 g) during LOS; additionally, Dietary Supplements will compensate for possible poor or insufficient PO intake of meals with 1,050 Kcal and 60 g of protein. #1 Nutrition Diagnosis Inadequate protein-energy intake Diagnosis Progress(for reassessment Continues documentation) Is patient on ventilator? No Is Patient Ambulatory and/or Out of Bed No REE-([facility]-confined to bed) [phone] Calculation Used for Recommendations [facility] Additional Notes Protein: 1.2-2 g/Kg; 65-108 g/ day. Fluids: 1 ml/Kcal, or as per MD. Nutrition Intervention Change Diet Order: Continue Cardiac Diet. Add Supplement/Snack (indicate name/kcal 8 fl oz Ensure Enlive; TID. /protein ) Provides kCal: 1,050 Provides Protein (gm) 60 Goal #1 Compensate, through dietary supplementation, for possible poor or insufficient PO intake of meals during LOS. Goal #2 Maintain body weight within +/ -3% of admission body weight during LOS. Goal #3 Support, through dietary supplementation, wound healing processes during LOS. Follow-Up By: 11/19/21 Additional Comments Continue monitoring food tolerance, %PO intake of meals , and BM.
[2021-11-18] MEDS: methylPREDNISolone Sod Succinate 40 MG/1 ML INJ IV SCH (05:08)
[2021-11-18] MEDS: HEPARIN 5,000 UNIT/1 ML VIAL SUB-Q SCH ×2 (05:09→14:57)
--- NOTE | 2021-11-18 08:13 | Progress Note ---
Assessment and Plan Assessment and plan: COVID pneumonia: CXR with bibasilar infiltrates. On room air. Stopped empiric antibiotics given normal procalcitonin. Change Solu-Medrol to dexamethasone 6 mg IV daily for 4 more days Toxic metabolic encephalopathy. Pressure wounds: offloading and wound care. 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 Disposition. Case management reports patient is pending [facility] Bed availability. History Interval history: No new issues overnight Hospitalist Physical - Constitutional Vitals: Temp Pulse Resp BP Pulse Ox 97.6 F 68 18 139/79 98 11/18/21 05:56 11/18/21 05:56 11/18/21 05:56 11/18/21 05:56 11/18/21 05:56 General appearance: Present: no acute distress, well-nourished - EENT Eyes: Present: PERRL, EOM intact ENT: hearing intact, clear oral mucosa, dentition normal - Neck Neck: Present: supple, normal ROM - Respiratory Respiratory effort: normal Respiratory: bilateral: CTA - Cardiovascular Rhythm: regular Heart Sounds: Present: S1 & S2. Absent: gallop, rub - Extremities Extremities: no ischemia, No edema, Full ROM - Abdominal General gastrointestinal: soft, non-tender, non-distended, normal bowel sounds - Integumentary Integumentary: Present: clear, warm, dry - Neurologic Neurologic: CNII-XII intact, moves all extremities HEART Score - HEART Score Troponin: Troponin T 0.016 ng/mL (0.00-0.029) 11/10/21 20:02 Results - Labs CBC & Chem 7: 11/12/21 05:44 11/12/21 05:44 Labs: Laboratory Last Values WBC 12.5 K/mm3 (4.5-11.0) H 11/12/21 05:44 RBC 3.81 M/mm3 (3.65-5.03) 11/12/21 05:44 Hgb 10.9 gm/dl (11.8-15.2) L 11/12/21 05:44 Hct 34.1 % (35.5-45.6) L 11/12/21 05:44 MCV 89 fl (84-94) 11/12/21 05:44 MCH 29 pg (28-32) 11/12/21 05:44 MCHC 32 % (32-34) 11/12/21 05:44 RDW 14.8 % (13.2-15.2) 11/12/21 05:44 Plt Count 245 K/mm3 (140-440) 11/12/21 05:44 Lymph % (Auto) 17.2 % (13.4-35.0) 11/12/21 05:44 Lake % (Auto) 6.2 % (0.0-7.3) 11/12/21 05:44 Eos % (Auto) 0.0 % (0.0-4.3) 11/12/21 05:44 Baso % (Auto) 0.3 % (0.0-1.8) 11/12/21 05:44 Lymph # (Auto) 2.2 K/mm3 (1.2-5.4) 11/12/21 05:44 Lake # (Auto) 0.8 K/mm3 (0.0-0.8) 11/12/21 05:44 Eos # (Auto) 0.0 K/mm3 (0.0-0.4) 11/12/21 05:44 Baso # (Auto) 0.0 K/mm3 (0.0-0.1) 11/12/21 05:44 Seg Neutrophils % 76.3 % (40.0-70.0) H 11/12/21 05:44 Seg Neutrophils # 9.6 K/mm3 (1.8-7.7) H 11/12/21 05:44 D-Dimer 1015.87 ng/mlDDU (0-234) H 11/11/21 00:38 Sodium 142 mmol/L (137-145) 11/12/21 05:44 Potassium 4.5 mmol/L (3.6-5.0) 11/12/21 05:44 Chloride 106.4 mmol/L (98-107) 11/12/21 05:44 Carbon Dioxide 26 mmol/L (22-30) 11/12/21 05:44 Anion Gap 14 mmol/L 11/12/21 05:44 BUN 16 mg/dL (9-20) 11/12/21 05:44 Creatinine 1.1 mg/dL (0.8-1.3) 11/12/21 05:44 Estimated GFR > 60 ml/min 11/12/21 05:44 BUN/Creatinine Ratio 15 % 11/12/21 05:44 Glucose 127 mg/dL (75-100) H 11/12/21 05:44 POC Glucose 109 mg/dL (70-105) H 11/16/21 05:13 Lactic Acid 1.20 mmol/L (0.7-2.0) 11/10/21 20:02 Calcium 9.0 mg/dL (8.4-10.2) 11/12/21 05:44 Magnesium 2.10 mg/dL (1.7-2.3) 11/10/21 20:02 Ferritin 1460.0 ng/mL (30.0-300.0) H 11/11/21 00:38 Total Bilirubin 0.70 mg/dL (0.1-1.2) 11/10/21 20:02 AST 41 units/L (5-40) H 11/10/21 20:02 ALT 37 units/L (7-56) 11/10/21 20:02 Alkaline Phosphatase 87 units/L (35-129) 11/10/21 20:02 Ammonia 13.0 umol/L (25-60) L 11/10/21 20:02 Lactate Dehydrogenase 275 units/L (91-180) H 11/11/21 00:38 Total Creatine Kinase 64 units/L (55-170) 11/10/21 20:02 Troponin T 0.016 ng/mL (0.00-0.029) 11/10/21 20:02 C-Reactive Protein 0.40 mg/dL (0.00-1.30) 11/11/21 00:38 Total Protein 6.9 g/dL (6.3-8.2) 11/10/21 20:02 Albumin 3.3 g/dL (3.9-5) L 11/10/21 20:02 Albumin/Globulin Ratio 0.9 % 11/10/21 20:02 Procalcitonin < 0.05 ng/mL (<0.15) 11/11/21 00:38 TSH 1.930 mlU/mL (0.270-4.200) 11/10/21 20:02 Coronavirus (PCR) Positive (Negative) A 11/11/21 09:00 Aguilar/IV: Voiding Method Incontinent Active Medications - Current Medications Current Medications: Generic Name Dose Route Start Last Admin Trade Name Freq PRN Reason Stop Dose Admin Acetaminophen 650 mg 11/11/21 02:33 Acetaminophen 325 Mg Tab PO Q4H PRN Pain MILD(1-3)/Fever >100.5/DUNNE Albuterol 2.5 mg 11/11/21 02:33 Albuterol 2.5 Mg/3 Ml Nebu IH Q3HRT PRN Shortness Of Breath Ascorbic Acid 500 mg 11/12/21 22:00 11/17/21 21:29 Ascorbic Acid 500 Mg Tab PO 500 mg BID ERNESTINE Administration Atorvastatin Calcium 80 mg 11/12/21 22:00 11/17/21 21:19 Atorvastatin 40 Mg Tab PO 80 mg QHS ERNESTINE Administration Cholecalciferol 1,000 unit 11/13/21 10:00 11/17/21 11:44 Cholecalciferol (Vit D3) 1000 Unit (25 Mcg) Tab PO 1,000 unit QDAY ERNESTINE Administration Citalopram Hydrobromide 10 mg 11/13/21 10:00 11/17/21 11:45 Citalopram 10 Mg Tab PO 10 mg QDAY ERNESTINE Administration Famotidine 10 mg 11/11/21 10:00 11/17/21 21:19 Famotidine 10 Mg Tab PO 10 mg BID ERNESTINE Administration Heparin Sodium (Porcine) 5,000 unit 11/11/21 06:00 11/18/21 05:09 Heparin 5,000 Unit/1 Ml Vial SUB-Q 5,000 unit Q8HR ERNESTINE Administration Hydromorphone HCl 0.5 mg 11/11/21 02:33 Hydromorphone 1 Mg/1 Ml Inj IV Q3H PRN Pain , Severe (7-10) Dextrose/Sodium Chloride 1,000 mls @ 100 mls/hr 11/11/21 03:00 11/17/21 20:52 D5/0.45ns IV 100 mls/hr DIRECT ERNESTINE Administration Levetiracetam 500 mg 11/12/21 22:00 11/17/21 21:19 Levetiracetam 500 Mg Tab PO 500 mg BID ERNESTINE Administration Methylprednisolone Sodium Succinate 40 mg 11/12/21 22:00 11/18/21 05:08 Methylprednisolone Sod Succinate 40 Mg/1 Ml Inj IV 40 mg Q8HR ERNESTINE Administration Metoprolol Succinate 25 mg 11/13/21 10:00 11/17/21 12:23 Metoprolol Succinate Xl 25 Mg Tab PO 25 mg QDAY ERNESTINE Administration Morphine Sulfate 2 mg 11/11/21 02:33 Morphine 2 Mg/1 Ml Inj IV Q4H PRN Pain, Moderate (4-6) Ondansetron HCl 4 mg 11/11/21 02:33 Ondansetron 4 Mg/2 Ml Inj IV Q8H PRN Nausea And Vomiting Sodium Chloride 10 ml 11/11/21 10:00 11/17/21 21:21 Sodium Chloride 0.9% 10 Ml Flush Syringe IV 10 ml BID ERNESTINE Administration Sodium Chloride 10 ml 11/11/21 02:33 Sodium Chloride 0.9% 10 Ml Flush Syringe IV PRN PRN LINE FLUSH Zinc Sulfate 220 mg 11/12/21 22:00 11/17/21 21:19 Zinc Sulfate 220 Mg Cap PO 220 mg BID ERNESTINE Administration Nutrition/Malnutrition Assess - Dietary Evaluation Nutrition/Malnutrition Findings: Nutrition Notes Start: 11/11/21 12:12 Freq: Status: Active Protocol: Document 11/12/21 16:24 SHELDON (Rec: 11/12/21 16:33 SHELDON [id number]) Nutrition Notes 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 Current Diet Cardiac Diet (since B 11/11), D Suppl (since D 11/11). Height 5 ft 8 in Weight 54 kg [place] Body Weight (kg) 70.00 BMI 18.1 Weight change and time frame 0.431 Kg body weight loss in 1 day reported. Weight Status Underweight Subjective/Other Information RD consult for skin risk assessment. Pt's PO intake has been Poor ( 25%), according to ADL notes. Pt presents incipient sacral decubitus lesion, according to Physical Assessment History notes. Pt has been prescribed with Dietary Supplements covering special requirements to support wound healing processes. Percent of energy/protein needs met: Prescribed Cardiac Diet provides for energy/protein needs (2,230 Kcal/85 g) during LOS; additionally, Dietary Supplements will compensate for possible poor or insufficient PO intake of meals with 1,050 Kcal and 60 g of protein. #1 Nutrition Diagnosis Inadequate protein-energy intake Diagnosis Progress(for reassessment Continues documentation) Is patient on ventilator? No Is Patient Ambulatory and/or Out of Bed No [facility]EE[facility] [phone] Calculation [facility]ations [facility] Additional Notes Protein: 1.2-2 g/Kg; 65-108 g/ day. Fluids: 1 ml/Kcal, or as per MD. Nutrition Intervention Change Diet Order: Continue Cardiac Diet. Add Supplement/Snack (indicate name/kcal 8 fl oz Ensure Enlive; TID. /protein ) Provides kCal: 1,050 Provides Protein (gm) 60 Goal #1 Compensate, through dietary supplementation, for possible poor or insufficient PO intake of meals during LOS. Goal #2 Maintain body weight within +/ -3% of admission body weight during LOS. Goal #3 Support, through dietary supplementation, wound healing processes during LOS. Follow-Up By: 11/19/21 Additional Comments Continue monitoring food tolerance, %PO intake of meals , and BM.
[2021-11-18 09:43] LABS: Hematocrit 34.8 % (35.5-45.6); Hemoglobin 11.1 gm/dl (11.8-15.2); Mean Corpuscular HGB Conc 32 % (32-34); Mean Corpuscular Volume 91 fl (84-94); Platelet Count 188 K/mm3 (140-440); Red Blood Count 3.84 M/mm3 (3.65-5.03); Red Cell Distribution Width 15.6 % (13.2-15.2)
[2021-11-18 09:44] LABS: BUN/Creatinine Ratio 25; Blood Urea Nitrogen 28 mg/dL (9-20); Calcium 8.2 mg/dL (8.4-10.2); Hemolysis Index 20
[2021-11-18] MEDS ORDERED: dexAMETHasone 4 MG/ML VIAL IV SCH (10:00)
[2021-11-18 10:30] LABS: Band Neutrophils # (Manual) 0.2 K/mm3; Basophils % (Manual) 0 % (0.0-1.8); Eosinophils % (Manual) 0 % (0.0-4.3); Total Cells Counted 100
[2021-11-18 10:31] LABS: Anisocytosis 1+; Burr Cells 1+; Poikilocytosis 1+; Toxic Granulation 2+
[2021-11-18 10:32] LABS: Platelet Estimate Consistent w Auto
[2021-11-18] MEDS: METOPROLOL SUCCINATE XL 25 MG TAB PO SCH (10:36)
[2021-11-18] MEDS: CHOLECALCIFEROL (VIT D3) 1000 UNIT (25 mcg) TAB PO SCH (10:36)
[2021-11-18] MEDS: levETIRAcetam 500 MG TAB PO SCH (10:36)
[2021-11-18] MEDS: FAMOTIDINE 10 MG TAB PO SCH (10:36)
[2021-11-18] MEDS: ASCORBIC ACID 500 MG TAB PO SCH (10:36)
[2021-11-18] MEDS: CITALOPRAM 10 MG TAB PO SCH (10:38)
[2021-11-18] MEDS: ZINC SULFATE 220 MG CAP PO SCH (10:39)
[2021-11-18 12:51] VITALS: BP 149/86
--- NOTE | 2021-11-18 13:04 | Discharge Summary ---
Providers - Providers Date of Admission: 11/11/21 02:44 Date of discharge: 11/18/21 Attending physician: AMERICA PIZARRO 11/11/21 02:33 Consult to Physician [CONS] Routine Comment: Consulting Provider: GODFREY BURNETT Physician Instructions: Reason For Exam: covid 11/11/21 02:35 Consult to Dietitian/Nutrition [CONS] Routine Physician Instructions: Reason For Exam: Reason for Consult: Malnutrition 11/12/21 08:12 Physical Therapy Evaluation and Treat [CONS] Stat Comment: Reason For Exam: eval and treat 11/12/21 09:20 Occupational Therapy Evaluate and Treat [CONS] Stat Comment: Reason For Exam: eval and treat Primary care physician: [employer] Hospitalization Reason for admission: COVID PNA Condition: Fair Hospital course: 81-year-old male past medical history dementia, stroke presented to hospital with decreased p.o. intake and weight loss. His most recent CVA was 2 weeks pre vious. He had residual weakness and had new onset altered mental status. He now has some ulcerations due to being mostly bedbound. Chest x-ray: Patchy bibasilar airspace opacities. The pt was admitted with dx of pneumonia and started on abx of ceftriaxone, azithromycin. COVID PCR was found to be positive. Therefore, dexamethasone started and topped empiric antibiotics given normal procalcitonin. Pt was not hypoxic and essentially On room air. The pt was also noted to have Pressure wounds: offloading and wound care. CM was consulted for SNF placement which was arranged. D/C time 32 minutes Disposition: 03 RETIREMENT FACILITY Final Discharge Diagnosis (Prints w/discharge instructions): COVID 19 PNA, recent CVA, pressure wounds Core Measure Documentation - Palliative Care Palliative Care/ Comfort Measures: Not Applicable - Core Measures Any of the following diagnoses?: none Exam - Constitutional Vitals: Temp Pulse Resp BP Pulse Ox 98.0 F 60 18 149/86 95 11/18/21 11:43 11/18/21 11:43 11/18/21 11:43 11/18/21 11:43 11/18/21 11:43 General appearance: Present: no acute distress, well-nourished - EENT Eyes: Present: PERRL ENT: hearing intact, clear oral mucosa - Neck Neck: Present: supple, normal ROM - Respiratory Respiratory effort: normal Respiratory: bilateral: CTA - Cardiovascular Heart Sounds: Present: S1 & S2. Absent: rub, click - Extremities Extremities: pulses symmetrical, No edema Peripheral Pulses: within normal limits - Abdominal General gastrointestinal: Present: soft, non-tender, non-distended, normal bowel sounds Male genitourinary: Present: normal - Integumentary Integumentary: Present: clear, warm, dry - Musculoskeletal Musculoskeletal: gait normal, strength equal bilaterally - Psychiatric Psychiatric: appropriate mood/affect, intact judgment & insight - Neurologic Neurologic: CNII-XII intact, moves all extremities Plan Activity: advance as tolerated Diet: per dietitian instruction Follow up with: PRIMARY CARE, [Primary Care Provider] - 3-5 Days
[2021-11-18] MEDS ORDERED: dexAMETHasone 4 MG/ML VIAL PO SCH (14:11)
== END 2021-11-18 15:57 | DRG 177 ==
LOC: ED 18:24 → 3A 11-11 02:44
PROVIDERS: ADMIT Hospitalist; ATTEND Hospitalist
DX: U07.1 COVID-19 (principal); G93.41 Metabolic encephalopathy; J12.82 Pneumonia due to coronavirus disease 2019; E46 Unspecified protein-calorie malnutrition; R62.7 Adult failure to thrive; Z68.20 Body mass index [BMI] 20.0-20.9, adult; Z82.49 Family history of ischemic heart disease and other diseases of the circulatory system; Z86.73 Personal history of transient ischemic attack (TIA), and cerebral infarction without residual deficits
CPT/HCPCS: 36415; 71045; 80048; 80053; 82140; 82550; 82728; 82962; 83615; 83735; 84145; 84443; 84484; 85007; 85025; 85379; 86140; 87040; 93005; 93010; 94640; G0378; J7070; Q0162; J0456; J0696; J1100; J1644; J2920; J7030; J8540; U0003